=== PATIENT | female | born 1970 | race Caucasian/White ===

== ENCOUNTER → 2018-09-04 | Outpatient (CLI) | payer BC ==
--- NOTE | 2018-09-08 10:12 | MM ---
Reason for exam: screening (asymptomatic). Last mammogram was performed 6 years and 7 months ago. History: Retro-pectoral saline implants in both breasts, 2003. Physical Findings: A clinical breast exam by your physician is recommended on an annual basis and results should be correlated with mammographic findings. MG Screening Mammo Implant/CAD Bilateral CC, MLO, and ID view(s) were taken. Prior study comparison: January 24, 2012, CAD bilateral diagnostic mammogram. There are scattered fibroglandular densities. No suspicious abnormality. Bilateral retropectoral saline implants. No significant changes when compared with prior studies. ASSESSMENT: Negative, BI-RAD 1 RECOMMENDATION: Routine screening mammogram of both breasts in 1 year.
== END | disposition home or self-care (01) ==
LOC: RADMAMWWP 09:32
PROVIDERS: ATTEND Family Medicine
DX: Z12.31 Encounter for screening mammogram for malignant neoplasm of breast (principal); Z98.82 Breast implant status
CPT/HCPCS: 77067

== ENCOUNTER → 2018-10-21 | Outpatient (CLI) | payer BC ==
[2018-10-21 16:51] VITALS: BP 128/73; PULSE 90; RESP 16; TEMP 98.3; BMI 36.8
--- NOTE | 2018-10-21 17:05 | P.HPBAR ---
Bariatric H&P - History & Physicial H&P Date: 10/21/18 History & Physicial: Visit/CC: Initial Visit Patient initial contact: Initial weight: 100.244 kg Initial weight in pounds: 221.00 Height: 5 ft 5 in Initial BMI: 36.8 Last weight: Current weight: 100.244 kg Current weight in pounds: 221.00 Current BMI: 36.8 [place] body weight (based on NIH guidelines): 56.699 kg Excess body weight loss: 0.0% The patient is a 48 year-old F who presents for Bariatric Assessment. DATE OF SERVICE: 10/21/2018 REASON FOR CONSULTATION: Initial bariatric evaluation. HISTORY OF PRESENT ILLNESS: Sujatha Loya is a 48-year-old female who comes with lifelong morbid obesity. She is looking into the sleeve gastrectomy. She reports family history of troubles with their weight. No severe reflux disease although present. No family history of stomach or esophageal cancer. She still has her gallbladder and appendix. No food aversions. She denies know history of diabetes. She reports back, hip, ankle, and foot problems. She in the past has gotten down to 160 pounds while on Adipex. She is looking into surgical options for weight loss. She reports occasional right upper quadrant pain. At height of 5 feet 5 inches, her ideal body weight is 149 pounds. She comes in 221 pounds. Her body mass index is 36.8. She is 72 pounds overweight. PAST MEDICAL HISTORY: 1. Morbid obesity due to excess calories 2. Body mass index of 36.8 3. Seasonal allergies 4. Osteoarthritis of the back 5. Osteoarthritis of the knee 6. Osteoarthritis of the hips 7. Osteoarthritis of the ankle 8. Osteoarthritis of the foot PAST SURGICAL HISTORY: 1. Uterine Ablation HOME MEDICATIONS: Home Medications Medication Instructions Recorded Confirmed Cetirizine HCl 10 mg PO DIRECTED 09/29/18 10/21/18 Phentermine HCl [Adipex-P] 37.5 mg PO DAILY 09/29/18 10/21/18 ALLERGIES: Allergies Allergy/AdvReac Type Severity Reaction Status Date / Time codeine Allergy Rash/Hives Verified 09/29/18 13:19 SOCIAL HISTORY: No past tobacco use. FAMILY HISTORY: No family history of ulcerative colitis disease or Crohn's disease. Family history of morbid obesity. No lupus in the family. No reports of stomach or esophageal cancer. REVIEW OF ORGAN SYSTEMS: CONSTITUTIONAL: At height of 5 feet 5 inches, her ideal body weight is 149 pounds. She comes in 221 pounds. Her body mass index is 36.8. She is 72 pounds overweight. HEENT: Denies any active troubles with vision or hearing. ENDOCRINE: No diabetes. No hypothyroidism. CARDIOVASCULAR: No past reports of palpitations or heart attacks or chest pain. RESPIRATORY: No daytime somnolence. No asthma. GASTROINTESTINAL: Denies any bright red blood per rectum. No diarrhea. No constipation. MUSCULOSKELETAL: Has lower back pain and joint pain. Has osteoarthritis of the knees. NEURO: No headaches. No seizure disorders. PSYCH: No depression. No suicidal ideation. RHEUMATOLOGIC: No lupus. No rheumatoid arthritis. HEMATOLOGIC: Denies any abnormal bleeding or bruising. No personal history of DVTs. SKIN: No rash. No skin cancer. PHYSICAL EXAM: VITAL SIGNS: Height 5 foot 5 inches, weight 221 pounds. BMI 36.8 Vital Signs Temp 98.3 F 10/21/18 16:47 Pulse 90 10/21/18 16:47 Resp 16 10/21/18 16:47 BP 128/73 10/21/18 16:47 Pulse Ox GENERAL: Well-developed in no acute distress. HEENT: No scleral icterus. Extraocular movements grossly intact. Hears conversational speech. No nasal drainage. NECK: Supple without lymphadenopathy. CHEST: Nonlabored respirations with equal bilateral excursions. CARDIOVASCULAR: Regular rate and regular rhythm. Distal 2+ pulses. ABDOMEN: Obese, soft, nontender, nondistended. MUSCULOSKELETAL: No clubbing, cyanosis. Gross strength 5/5 distal lower extremities. NEURO: No focal or lateralizing signs. Cranial nerves 2 through 12 grossly within normal limits. PSYCH: Appropriate affect. Alert and oriented to person, place and time. SKIN: Good skin turgor. Well perfused. ASSESSMENT: 1. Morbid obesity due to excess calories 2. Body mass index of 36.8 3. Seasonal allergies 4. Osteoarthritis of the back 5. Osteoarthritis of the knee 6. Osteoarthritis of the hips 7. Osteoarthritis of the ankle 8. Osteoarthritis of the foot 9. Gallbladder disorder PLAN: 1. Surgical options including a band, gastric bypass, sleeve gastrectomy were described in detail. Alternatives such as gastric balloon including duodenal switch were described. She is looking into the sleeve gastrectomy. 2. The [place] [facility] collaborative data and outcomes calculator were described with surgical options. 3. Recommend a bariatric metabolic panel to evaluate for micro- including macronutrient deficiencies. 4. Recommend evaluation and treatment for sleep apnea. 5. Dietary surveillance and counseling was reviewed. Increased protein intake over 65 grams daily advised. 6. Will need cardiac risk assessment. 7. Recommend medical risk assessment. 8. Psych assessment per insurance guidelines. 9. Recommend upper endoscopy. 10. Recommend 12-lead EKG. 11. Recommend US gallbladder Thank you for this consultation. Past Medical History Past Medical History: No Reported History History of Any Multi-Drug Resistant Organisms: None Reported Past Surgical History: Uterine Ablation Additional Past Surgical History / Comment(s): breast enlargement surgery Past Anesthesia/Blood Transfusion Reactions: No Reported Reaction Smoking Status: Never smoker Surgical - Exam Vital Signs Temp Pulse Resp BP 98.3 F 90 16 128/73 10/21/18 16:47 10/21/18 16:47 10/21/18 16:47 10/21/18 16:47 Bariatric Checklist Checklist: Plan: Checklist: EGD: 1. Hiatal hernia: 2. H. Pylori: HgbA1c: Vitamin D: Smoking: Never smoker Primary care physician referral: DR. ZUNIGA Psychiatry clearance: Cardiology clearance: Sleep study: Diet journal: VTE risk score: VTE risk level: Rehab needs at discharge:
== END | disposition home or self-care (01) ==
LOC: BARWHC3 15:40
PROVIDERS: ATTEND Surgery Plastic and Reconstructive Surgery
DX: E66.01 Morbid (severe) obesity due to excess calories (principal); J30.2 Other seasonal allergic rhinitis; M47.819 Spondylosis without myelopathy or radiculopathy, site unspecified; M16.0 Bilateral primary osteoarthritis of hip; M17.9 Osteoarthritis of knee, unspecified; M19.079 Primary osteoarthritis, unspecified ankle and foot; K82.9 Disease of gallbladder, unspecified; Z68.36 Body mass index [BMI] 36.0-36.9, adult; Z98.890 Other specified postprocedural states; Z79.899 Other long term (current) drug therapy; Z88.5 Allergy status to narcotic agent
CPT/HCPCS: 99211

== ENCOUNTER → 2018-10-23 | Outpatient (CLI) | payer BC ==
[2018-10-23 12:09] LABS: HGB 13.9 gm/dL (11.4-16.0); MCH 29.1 pg (25.0-35.0); MCHC 33.1 g/dL (31.0-37.0); MCV 87.7 fL (80.0-100.0); Mean Platelet Volume 6.6; Platelet Count 320 k/uL (150-450); RBC 4.78 m/uL (3.80-5.40); RDW 12.9 % (11.5-15.5); WBC 6.7 k/uL (3.8-10.6)
[2018-10-23 12:22] LABS: INR 0.9 (<1.2); Partial Thromboplastin Time 25.2 sec (22.0-30.0); Prothrombin Time 9.7 sec (9.0-12.0)
[2018-10-23 18:53] LABS: Iron Saturation 30.62 (12.00-45.00)
[2018-10-23 18:55] LABS: African American GFR (CKD) 119.6 (60.0-200.0); Albumin 4.3 g/dL (3.80-4.90); Albumin/Globulin Ratio 2.05 (1.60-3.17); Anion Gap 7.9 mmol/L (4.00-12.00); BUN/Creat Ratio 11.43 Ratio (12.00-20.00); Carbon Dioxide 27.1 mmol/L (21.6-31.8); Chol/HDL Ratio 3.03; Globulin 2.1 g/dL (1.6-3.3); Magnesium 1.8 mg/dL (1.5-2.4); Non-African American GFR(CKD) 103.2 (60.0-200.0); Phosphorus 3.1 mg/dL (2.4-5.1); Potassium 4.3 mmol/L (3.5-5.5); Total Bilirubin 0.7 mg/dL (0.3-1.2); Total Protein 6.4 g/dL (6.2-8.2)
[2018-10-23 19:03] LABS: Ferritin 51.4 ng/mL (10.0-291.0); Folate, Serum 8.6 ng/mL; Vitamin D 25 Hydroxy 24.8 ng/mL (30.0-100.0)
[2018-10-23 23:55] LABS: Hemoglobin A1C 5.1 % (4.0-6.0)
[2018-10-26 13:22] LABS: Zinc, Serum 68 ug/dL (60-130)
[2018-10-27 08:22] LABS: Vitamin A 38 ug/dL (38-106)
[2018-10-27 18:50] LABS: Selenium 112 mcg/L (63-160)
[2018-11-10 08:36] LABS: Vit B1(Thiamine) 48 ug/L (38-122)
== END | disposition home or self-care (01) ==
LOC: LABWHC1 11:25
PROVIDERS: ATTEND Surgery Plastic and Reconstructive Surgery
DX: E66.01 Morbid (severe) obesity due to excess calories (principal); E21.1 Secondary hyperparathyroidism, not elsewhere classified; D50.9 Iron deficiency anemia, unspecified; E44.0 Moderate protein-calorie malnutrition; E55.9 Vitamin D deficiency, unspecified; K74.1 Hepatic sclerosis; N19 Unspecified kidney failure; K50.90 Crohn's disease, unspecified, without complications
CPT/HCPCS: 36415; 80053; 80061; 82306; 82525; 82607; 82728; 82746; 83036; 83540; 83550; 83735; 83970; 84100; 84134; 84255; 84425; 84443; 84590; 84630; 85027; 85610; 85730; 93005

== ENCOUNTER 2018-12-21 06:57 | Day surgery (SDC) | payer BC ==
[2018-12-17 12:47] VITALS: BMI 37.4
[~2018-12-21 06:57] MED LIST: LACTATED RINGERS 1,000 ML IV SCH; LIDOCAINE 1% 20 ML VIAL (10MG/ML) FOR IV START INTRADERMA PRN
--- NOTE | 2018-12-21 07:17 | P.GSHP ---
History of Present Illness H&P Date: 12/21/18 CHIEF COMPLAINT: GERD HISTORY OF PRESENT ILLNESS: The patient is a 48-year-old female who presents reports gastroesophageal reflux disease. Upper endoscopy was offered for further evaluation and management. PAST MEDICAL HISTORY: Please see list. PAST SURGICAL HISTORY: Please see list. MEDICATIONS: Please see list. ALLERGIES: Please see list. SOCIAL HISTORY: No illicit drug use FAMILY HISTORY: No reports of Crohn disease or ulcerative colitis. REVIEW OF ORGAN SYSTEMS: CONSTITUTIONAL: No reports of fevers or chills. GI: Denies any blood in stools or constipation. PHYSICAL EXAM: VITAL SIGNS: Stable GENERAL: Well-developed and pleasant in no acute distress. HEENT: No scleral icterus. Extraocular movements grossly intact. Moist buccal mucosa. NECK: Supple without lymphadenopathy. CHEST: Unlabored respirations. Equal bilateral excursions. CARDIOVASCULAR: Regular rate and rhythm. Distal 2+ pulses. ABDOMEN: Soft, nondistended. MUSCULOSKELETAL: No clubbing, cyanosis, or edema. ASSESSMENT: 1. Gastroesophageal reflux disease PLAN: 1. Recommend proceeding with an upper endoscopy Past Medical History Past Medical History: Skin Disorder Additional Past Medical History / Comment(s): SPORADIC HIVES FOR FEW MONTHS. History of Any Multi-Drug Resistant Organisms: None Reported Past Surgical History: Breast Surgery, Uterine Ablation Additional Past Surgical History / Comment(s): Breast enlargement surgery Past Anesthesia/Blood Transfusion Reactions: No Reported Reaction Smoking Status: Never smoker - Past Family History Mother Family Medical History: Cancer Additional Family Medical History / Comment(s): UTERINE CA Medications and Allergies Home Medications Medication Instructions Recorded Confirmed Type Cetirizine HCl 10 mg PO DAILY 09/29/18 12/17/18 History Phentermine HCl [Adipex-P] 37.5 mg PO DAILY 09/29/18 12/17/18 History Allergies Allergy/AdvReac Type Severity Reaction Status Date / Time codeine Allergy Rash/Hives Verified 12/17/18 12:34
[2018-12-21 07:32] VITALS: TEMP 97.9
[2018-12-21] MEDS ORDERED: LIDOCAINE 1% INJ 10MG/ML (20 ML MDV) ONE (07:56)
[2018-12-21] MEDS ORDERED: PROPOFOL 10 MG/ML 20 ML VIAL IV ONE (07:56)
[2018-12-21] MEDS ORDERED: GLYCOPYRROLATE 0.2 MG/ML 2 ML VIAL ONE (07:56)
[2018-12-21 08:32] VITALS: BP 111/71; PULSE 84; RESP 18
--- NOTE | 2018-12-21 12:32 | P.PCN ---
Date of Procedure: 12/21/18 Description of Procedure: PREOPERATIVE DIAGNOSIS: Gastroesophageal reflux disease. Morbid obesity. POSTOPERATIVE DIAGNOSIS: Morbid obesity. Gastritis. Gastroesophageal reflux disease. OPERATION: Esophagogastroduodenoscopy with biopsies along antrum. SURGEON: Citlali Cottrell MD ANESTHESIA: MAC. INDICATIONS: The patient is a 48-year-old female who presents with a history of reflux disease. Benefits and risks of the procedure were described. Informed consent was obtained. DESCRIPTION: The patient was brought into the endoscopy suite and laid in the left lateral decubitus position. An Olympus gastroscope was passed along the posterior oropharynx down to the distal esophagus where the squamocolumnar junction was encountered at 37 cm from the incisors with hypertensive lower esophageal sphincter. The stomach was entered and no bile reflux was found. Additional findings are listed below. Biopsies with cold forceps were obtained of the antrum. The first through third portion of the duodenum was examined and unremarkable. Retroflexion of the scope confirmed Hill grade 1 lower esophageal valve. The squamocolumnar junction demonstrated no LA grade A erosive esophagitis. The stomach was desufflated. The patient tolerated the procedure well. FINDINGS: Squamocolumnar junction 37 cm from the incisors. Diaphragmatic hiatus at 37 cm. Hill grade 1 lower esophageal valve. No LA grade A erosive esophagitis. No active duodenitis. Chronic gastritis Hypertensive lower esophageal sphincter RECOMMENDATIONS: Upper endoscopy as needed. May need esophagram or manometry to evaluate hypertensive lower esophageal sphincter Plan - Discharge Summary Discharge Rx Participant: No New Discharge Prescriptions: No Action Phentermine HCl [Adipex-P] 37.5 mg PO DAILY Cetirizine HCl 10 mg PO DAILY Discharge Medication List Cetirizine HCl 10 mg PO DAILY 09/29/18 [History] Phentermine HCl [Adipex-P] 37.5 mg PO DAILY 09/29/18 [History] Follow up [facility]ment(s[facility]Ref[place] [facility] [place] [place] [facility] - 12/30/18 4:20 pm Patient Instructions/Handouts: *Surgery [facility] - (Anesthesia) Endoscopy Discharge Instructions, Gastritis (DC) Activity/Diet/Wound Care/Special Instructions: dr will have biopsy results 5-7 days Discharge Disposition: HOME SELF-CARE
== END 2018-12-21 08:33 | disposition home or self-care (01) ==
LOC: ORWHC2ENDO 06:57
PROVIDERS: ATTEND Surgery Plastic and Reconstructive Surgery
DX: K21.0 Gastro-esophageal reflux disease with esophagitis (principal); K29.50 Unspecified chronic gastritis without bleeding; E66.01 Morbid (severe) obesity due to excess calories; Z68.37 Body mass index [BMI] 37.0-37.9, adult; Z80.49 Family history of malignant neoplasm of other genital organs; Z88.5 Allergy status to narcotic agent; Z79.899 Other long term (current) drug therapy
CPT/HCPCS: 81025; 88305; 43239; J2001; J2704

== ENCOUNTER → 2018-12-30 | Outpatient (CLI) | payer BC ==
[2018-12-30 16:44] VITALS: BP 138/64; PULSE 91; TEMP 99; BMI 37.9
--- NOTE | 2018-12-30 17:12 | P.PN ---
Subjective Progress Note Date: 12/30/18 DATE OF SERVICE: 12/30/2018 CHIEF COMPLAINT: Morbid obesity HISTORY OF PRESENT ILLNESS: Sujatha Loya is a 48-year-old female who comes with lifelong morbid obesity. She is looking into the sleeve gastrectomy. As a result of her obesity, she has developed osteoarthritis of the back, hips, ankles, and foot problems including hypertension. She also comes in with gastroesophageal reflux disease. She has occasional dysphagia and right upper quadrant abdominal pain. She is undergoing medical supervised weight loss. At height of 5 feet 5 inches, her ideal body weight is 149 pounds. She comes in 228 pounds from 221 pounds, 2 months ago. She has gained 7 pounds in 2 months. Her body mass index is 36.8 up to 37.9. She is 79 pounds overweight. PAST MEDICAL HISTORY: 1. Morbid obesity due to excess calories 2. Body mass index of 37.9 3. Seasonal allergies 4. Osteoarthritis of the back 5. Osteoarthritis of the knee 6. Osteoarthritis of the hips 7. Osteoarthritis of the ankle 8. Osteoarthritis of the foot PAST SURGICAL HISTORY: 1. Uterine Ablation HOME MEDICATIONS: Home Medications Medication Instructions Recorded Confirmed Cetirizine HCl 10 mg PO DIRECTED 09/29/18 10/21/18 Phentermine HCl [Adipex-P] 37.5 mg PO DAILY 09/29/18 10/21/18 ALLERGIES: Allergies Allergy/AdvReac Type Severity Reaction Status Date / Time codeine Allergy Rash/Hives Verified 09/29/18 13:19 SOCIAL HISTORY: No past tobacco use. FAMILY HISTORY: No family history of ulcerative colitis disease or Crohn's disease. Family history of morbid obesity. No lupus in the family. No reports of stomach or esophageal cancer. REVIEW OF ORGAN SYSTEMS: CONSTITUTIONAL: At height of 5 feet 5 inches, her ideal body weight is 149 pounds. She comes in 228 pounds. Her body mass index is 37.9. She is 79 pounds overweight. HEENT: Denies any active troubles with vision or hearing. ENDOCRINE: No diabetes. No hypothyroidism. CARDIOVASCULAR: No past reports of palpitations or heart attacks or chest pain. RESPIRATORY: No daytime somnolence. No asthma. GASTROINTESTINAL: Denies any bright red blood per rectum. No diarrhea. No constipation. MUSCULOSKELETAL: Has lower back pain and joint pain. Has osteoarthritis of the knees. NEURO: No headaches. No seizure disorders. PSYCH: No depression. No suicidal ideation. RHEUMATOLOGIC: No lupus. No rheumatoid arthritis. HEMATOLOGIC: Denies any abnormal bleeding or bruising. No personal history of DVTs. SKIN: No rash. No skin cancer. PHYSICAL EXAM: VITAL SIGNS: Height 5 foot 5 inches, weight 228 pounds. BMI 37.9 Vital Signs Temp 99.0 F 12/30/18 16:33 Pulse 91 12/30/18 16:33 Resp BP 138/64 12/30/18 16:33 Pulse Ox GENERAL: Well-developed in no acute distress. HEENT: No scleral icterus. Extraocular movements grossly intact. Hears conversational speech. No nasal drainage. NECK: Supple without lymphadenopathy. CHEST: Nonlabored respirations with equal bilateral excursions. CARDIOVASCULAR: Regular rate and regular rhythm. Distal 2+ pulses. ABDOMEN: Obese, soft, nontender, nondistended. MUSCULOSKELETAL: No clubbing, cyanosis. Gross strength 5/5 distal lower extremities. NEURO: No focal or lateralizing signs. Cranial nerves 2 through 12 grossly within normal limits. PSYCH: Appropriate affect. Alert and oriented to person, place and time. SKIN: Good skin turgor. Well perfused. LABS: Cholesterol is elevated 203, Vitamin D is low EKG: Reviewed and is borderline EGD FINDINGS: Squamocolumnar junction 37 cm from the incisors. Diaphragmatic hiatus at 37 cm. Hill grade 1 lower esophageal valve. No LA grade A erosive esophagitis. No active duodenitis. Chronic gastritis Hypertensive lower esophageal sphincter Final Pathologic Diagnosis GASTRIC ANTRUM, BIOPSY: Chronic gastritis. Helicobacter organisms are not identified on routine H+E stained sections. ASSESSMENT: 1. Morbid obesity due to excess calories 2. Body mass index of 37.9 3. Seasonal allergies 4. Osteoarthritis of the back 5. Osteoarthritis of the knee 6. Osteoarthritis of the hips 7. Osteoarthritis of the ankle 8. Osteoarthritis of the foot 9. Gallbladder disorder 10. Hypertensive heart disease 11. Hypertensive lower esophageal sphincter 12. Chronic gastritis 13. Hypercholesterolemia PLAN: 1. Recommend esophageal manometry for hypertensive lower esophageal sphincter. 2. She has risk for dysphagia with sleeve gastrectomy with current hypertensive esophageal sphincter. 3. Recommend ultrasound of the abdomen for history of right upper quadrant abdominal pain. Objective - Vital Signs Vital signs: Vital Signs Temp 99.0 F 12/30/18 16:33 Pulse 91 10/16/19 16:33 Resp BP 138/64 12/30/18 16:33 Pulse Ox Intake & Output 12/29/18 12/30/18 12/30/18 18:59 06:59 18:59 Weight 103.419 kg
== END | disposition home or self-care (01) ==
LOC: BARWHC3 15:51
PROVIDERS: ATTEND Surgery Plastic and Reconstructive Surgery
DX: E66.01 Morbid (severe) obesity due to excess calories (principal); M16.10 Unilateral primary osteoarthritis, unspecified hip; M19.079 Primary osteoarthritis, unspecified ankle and foot; M17.10 Unilateral primary osteoarthritis, unspecified knee; K82.8 Other specified diseases of gallbladder; I11.9 Hypertensive heart disease without heart failure; I50.9 Heart failure, unspecified; J30.2 Other seasonal allergic rhinitis; E78.00 Pure hypercholesterolemia, unspecified; K29.50 Unspecified chronic gastritis without bleeding; K21.9 Gastro-esophageal reflux disease without esophagitis; M47.819 Spondylosis without myelopathy or radiculopathy, site unspecified; Z68.37 Body mass index [BMI] 37.0-37.9, adult; Z98.890 Other specified postprocedural states; Z79.899 Other long term (current) drug therapy; Z88.5 Allergy status to narcotic agent
CPT/HCPCS: 99211

== ENCOUNTER → 2019-01-08 | Outpatient (CLI) | payer BC ==
--- NOTE | 2019-01-08 11:44 | US ---
EXAMINATION TYPE: US gallbladder DATE OF EXAM: 01/08/2019 COMPARISON: NONE CLINICAL HISTORY: R10.11 right upper quadrant pain. Intermittent RUQ pain EXAM MEASUREMENTS: Liver Length: 15.7 cm Gallbladder Wall: 0.3 cm CBD: 0.3 cm Right Kidney: 10.3 x 4.4 x 5.5 cm Pancreas: Obscured by bowel gas Liver: multiple cystic areas noted, largest = 4.4 x 4.1 x 5.2cm Gallbladder: multiple stones Evidence for sonographic Darden's sign: no CBD: appears wnl Right Kidney: no evidence of hydronephrosis or mass Pancreas is obscured by overlying bowel gas on images saved. Visualized liver shows no intrahepatic d uctal dilatation. Technologist identifies few simple appearing thin-walled cysts largest measuring up to 5.2 cm long axis. Gallbladder poorly visualized with suspected shadowing mobile gallstones fillin g the lumen. No surrounding fluid or abnormal wall thickening. Common bile duct is within normal limi ts. Images of right kidney show no gross hydronephrosis. IMPRESSION: Gallstones without convincing secondary ultrasound evidence for acute cholecystitis. Cons ider HIDA scan if patient's symptoms persist.
== END | disposition home or self-care (01) ==
LOC: RADUSWWP 10:55
PROVIDERS: ATTEND Surgery Plastic and Reconstructive Surgery
DX: K80.20 Calculus of gallbladder without cholecystitis without obstruction (principal)
CPT/HCPCS: 76705

== ENCOUNTER → 2019-01-11 | Outpatient (CLI) | payer BC ==
[2019-01-11 13:37] VITALS: BMI 38.2
== END ==
LOC: BARWHC3 08:42
PROVIDERS: ATTEND Surgery Plastic and Reconstructive Surgery
DX: E66.01 Morbid (severe) obesity due to excess calories (principal); Z68.38 Body mass index [BMI] 38.0-38.9, adult
CPT/HCPCS: 97804

== ENCOUNTER → 2019-01-27 | Outpatient (CLI) | payer BC ==
[2019-01-27 16:43] VITALS: BP 123/76; PULSE 85; RESP 16; TEMP 98.2; BMI 38.1
--- NOTE | 2019-01-27 17:23 | P.PN ---
Subjective Progress Note Date: 01/27/19 DATE OF SERVICE: 01/27/2019 CHIEF COMPLAINT: Morbid obesity HISTORY OF PRESENT ILLNESS: Sujatha Loya is a 48-year-old female who comes with lifelong morbid obesity. As a result of her obesity, she has osteoarthritis of the back, hips, ankles, including hypertension. She is undergoing medical supervised weight loss and has been on Adipex. She comes in with gastroesophageal reflux disease including right upper quadrant pain including dysphagia. She is looking into the sleeve gastrectomy. At height of 5 feet 5 inches, her ideal body weight is 149 pounds. She comes in 229 pounds from 228 pounds, 1 month ago. She has gained 1 pound in 1 month. Her body mass index is 36.8 up to 38.1. She is 80 pounds overweight. PAST MEDICAL HISTORY: 1. Morbid obesity due to excess calories 2. Body mass index of 38.1 3. Seasonal allergies 4. Osteoarthritis of the back 5. Osteoarthritis of the knee 6. Osteoarthritis of the hips 7. Osteoarthritis of the ankle 8. Osteoarthritis of the foot PAST SURGICAL HISTORY: 1. Uterine Ablation 2. EGD HOME MEDICATIONS: Home Medications Medication Instructions Recorded Confirmed Cetirizine HCl 10 mg PO DIRECTED 09/29/18 10/21/18 Phentermine HCl [Adipex-P] 37.5 mg PO DAILY 09/29/18 10/21/18 ALLERGIES: Allergies Allergy/AdvReac Type Severity Reaction Status Date / Time codeine Allergy Rash/Hives Verified 09/29/18 13:19 SOCIAL HISTORY: No past tobacco use. FAMILY HISTORY: No family history of ulcerative colitis disease or Crohn's disease. Family history of morbid obesity. No lupus in the family. No reports of stomach or esophageal cancer. REVIEW OF ORGAN SYSTEMS: CONSTITUTIONAL: At height of 5 feet 5 inches, her ideal body weight is 149 pounds. She comes in 228 pounds. Her body mass index is 37.9. She is 79 pounds overweight. HEENT: Denies any active troubles with vision or hearing. ENDOCRINE: No diabetes. No hypothyroidism. CARDIOVASCULAR: No past reports of palpitations or heart attacks or chest pain. RESPIRATORY: No daytime somnolence. No asthma. GASTROINTESTINAL: Denies any bright red blood per rectum. No diarrhea. No constipation. MUSCULOSKELETAL: Has lower back pain and joint pain. Has osteoarthritis of the knees. NEURO: No headaches. No seizure disorders. PSYCH: No depression. No suicidal ideation. RHEUMATOLOGIC: No lupus. No rheumatoid arthritis. HEMATOLOGIC: Denies any abnormal bleeding or bruising. No personal history of DVTs. SKIN: No rash. No skin cancer. PHYSICAL EXAM: VITAL SIGNS: Height 5 foot 5 inches, weight 229 pounds. BMI 38.1 Vital Signs Temp 98.2 F 01/27/19 16:40 Pulse 85 01/27/19 16:40 Resp 16 01/27/19 16:40 BP 123/76 01/27/19 16:40 Pulse Ox GENERAL: Well-developed in no acute distress. HEENT: No scleral icterus. Extraocular movements grossly intact. Hears conversational speech. No nasal drainage. NECK: Supple without lymphadenopathy. CHEST: Nonlabored respirations with equal bilateral excursions. CARDIOVASCULAR: Regular rate and regular rhythm. Distal 2+ pulses. ABDOMEN: Obese, soft, nontender, nondistended. MUSCULOSKELETAL: No clubbing, cyanosis. Gross strength 5/5 distal lower extremities. NEURO: No focal or lateralizing signs. Cranial nerves 2 through 12 grossly within normal limits. PSYCH: Appropriate affect. Alert and oriented to person, place and time. SKIN: Good skin turgor. Well perfused. STUDIES: Esophageal manometry reviewed showing no evidence of esophageal dysmotility. US gallbladder independently reviewed shows multiple gallstones. ASSESSMENT: 1. Morbid obesity due to excess calories 2. Body mass index of 37.9 3. Seasonal allergies 4. Osteoarthritis of the back 5. Osteoarthritis of the knee 6. Osteoarthritis of the hips 7. Osteoarthritis of the ankle 8. Osteoarthritis of the foot 9. Gallbladder disorder 10. Hypertensive heart disease 11. Hypertensive lower esophageal sphincter 12. Chronic gastritis 13. Hypercholesterolemia 14. Gallstones 15. Borderline EKG PLAN: 1. With her history of right upper quadrant pain and gastroesophageal reflux disease, her symptoms are exacerbated with gallstones. 2. Recommend cholecystectomy for symptomatic gallstones. 3. She has borderline EKG and has completed her cardiac clearance. 4. Will need correction of Vitamin D with 50,000 units weekly. 5. Bariatric options between a sleeve, band and a Hi-en-Y gastric bypass were reviewed in detail. The patient elected for a sleeve gastrectomy. Robotic assisted approach described. She is elevated risks with occasional dysphagia 6. The [place] [facility] Data was also reviewed with benefits and risks as described. 7. A 2 week high-protein low caloric 800 kcal diet described to address hepatomegaly. 8. Preoperative labs including complete metabolic panel and CBC with type and screen recommended. 9. DVT prophylaxis per [place] [facility]. 10. Antibiotic prophylaxis. 11. Inpatient hospitalization anticipated for more than 2 nights. 12. All questions and concerns were addressed with the patient. Objective - Vital Signs Vital signs: Vital Signs Temp 98.2 F 01/27/19 16:40 Pulse 85 01/27/19 16:40 Resp 16 01/27/19 16:40 BP 123/76 01/27/19 16:40 Pulse Ox Intake & Output 01/26/19 01/27/19 01/27/19 18:59 06:59 18:59 Weight 103.873 kg
== END | disposition home or self-care (01) ==
LOC: BARWHC3 16:08
PROVIDERS: ATTEND Surgery Plastic and Reconstructive Surgery
DX: E66.01 Morbid (severe) obesity due to excess calories (principal); J30.2 Other seasonal allergic rhinitis; M16.0 Bilateral primary osteoarthritis of hip; M17.0 Bilateral primary osteoarthritis of knee; M19.079 Primary osteoarthritis, unspecified ankle and foot; M47.819 Spondylosis without myelopathy or radiculopathy, site unspecified; I11.9 Hypertensive heart disease without heart failure; K22.0 Achalasia of cardia; K29.50 Unspecified chronic gastritis without bleeding; E78.00 Pure hypercholesterolemia, unspecified; K80.20 Calculus of gallbladder without cholecystitis without obstruction; K82.9 Disease of gallbladder, unspecified; T78.49XA Other allergy, initial encounter; Z88.5 Allergy status to narcotic agent; Z68.38 Body mass index [BMI] 38.0-38.9, adult; Z79.899 Other long term (current) drug therapy
CPT/HCPCS: 99211

== ENCOUNTER → 2019-02-23 | Outpatient (CLI) | payer BC ==
[2019-02-23 12:09] LABS: ALT 22 U/L (9-52); AST 18 U/L (14-36); African American GFR (CKD) >90 (>60 ml/min/1.73 sqM); Albumin 4.3 g/dL (3.5-5.0); Alkaline Phosphatase 45 U/L (38-126); Anion Gap 7 mmol/L; Blood Urea Nitrogen 12 mg/dL (7-17); Calcium 9.6 mg/dL (8.4-10.2); Carbon Dioxide 28 mmol/L (22-30); Chloride 105 mmol/L (98-107); Glucose 97 mg/dL (74-99); Non-African American GFR(CKD) >90 (>60 ml/min/1.73 sqM); Potassium 4.2 mmol/L (3.5-5.1); Sodium 140 mmol/L (137-145); Total Bilirubin 0.9 mg/dL (0.2-1.3); Total Protein 7.2 g/dL (6.3-8.2)
[2019-02-23 12:11] LABS: Basophils % (A) 1 %; Eosinophils # (A) 0.2 k/uL (0-0.7); Eosinophils % (A) 2 %; HCT 41.6 % (34.0-46.0); Lymphocytes # (A) 2.2 k/uL (1.0-4.8); Lymphocytes % (A) 32 %; MCH 29.4 pg (25.0-35.0); MCHC 33.6 g/dL (31.0-37.0); MCV 87.5 fL (80.0-100.0); Monocytes # (A) 0.4 k/uL (0-1.0); Monocytes % (A) 6 %; Neutrophils % (A) 57 %; Platelet Count 320 k/uL (150-450); RBC 4.75 m/uL (3.80-5.40); RDW 12.5 % (11.5-15.5); WBC 6.9 k/uL (3.8-10.6)
== END ==
LOC: LABPAT 11:20
PROVIDERS: ATTEND Surgery Plastic and Reconstructive Surgery
DX: Z01.812 Encounter for preprocedural laboratory examination (principal)
CPT/HCPCS: 36415; 80053; 85025

== ENCOUNTER 2019-03-01 08:14 | Inpatient (IN) | payer BC ==
--- NOTE | 2019-03-01 07:29 | P.GSHP ---
History of Present Illness H&P Date: 03/01/19 DATE OF SERVICE: 03/01/2019 CHIEF COMPLAINT: Morbid obesity HISTORY OF PRESENT ILLNESS: Sujatha Loya is a 48-year-old female who comes with lifelong morbid obesity. She is looking into the sleeve gastrectomy. As a result of her obesity, she has developed osteoarthritis of the back, hips, ank les, and foot problems including hypertension. She also comes in with gastroesophageal reflux disease. She has occasional dysphagia and right upper quadrant abdominal pain. She is undergoing medical supervised weight loss. She also presents with ultrasound consistent with symptomatic gallstones. At height of 5 feet 5 inches, her ideal body weight is 149 pounds. She comes in 228 pounds .Her body mass index is 37.9. She is 79 pounds overweight. PAST MEDICAL HISTORY: 1. Morbid obesity due to excess calories 2. Body mass index of 37.9 3. Seasonal allergies 4. Osteoarthritis of the back 5. Osteoarthritis of the knee 6. Osteoarthritis of the hips 7. Osteoarthritis of the ankle 8. Osteoarthritis of the foot PAST SURGICAL HISTORY: 1. Uterine Ablation HOME MEDICATIONS: Home Medications Medication Instructions Recorded Confirmed Cetirizine HCl 10 mg PO DIRECTED 09/29/18 10/21/18 Phentermine HCl [Adipex-P] 37.5 mg PO DAILY 09/29/18 10/21/18 ALLERGIES: Allergies Allergy/AdvReac Type Severity Reaction Status Date / Time codeine Allergy Rash/Hives Verified 09/29/18 13:19 SOCIAL HISTORY: No past tobacco use. FAMILY HISTORY: No family history of ulcerative colitis disease or Crohn's disease. Family history of morbid obesity. No lupus in the family. No reports of stomach or esophageal cancer. REVIEW OF ORGAN SYSTEMS: CONSTITUTIONAL: At height of 5 feet 5 inches, her ideal body weight is 149 pounds. She comes in 228 pounds. Her body mass index is 37.9. She is 79 pounds overweight. HEENT: Denies any active troubles with vision or hearing. ENDOCRINE: No diabetes. No hypothyroidism. CARDIOVASCULAR: No past reports of palpitations or heart attacks or chest pain. RESPIRATORY: No daytime somnolence. No asthma. GASTROINTESTINAL: Denies any bright red blood per rectum. No diarrhea. No constipation. MUSCULOSKELETAL: Has lower back pain and joint pain. Has osteoarthritis of the knees. NEURO: No headaches. No seizure disorders. PSYCH: No depression. No suicidal ideation. RHEUMATOLOGIC: No lupus. No rheumatoid arthritis. HEMATOLOGIC: Denies any abnormal bleeding or bruising. No personal history of DVTs. SKIN: No rash. No skin cancer. PHYSICAL EXAM: VITAL SIGNS: Height 5 foot 5 inches, weight 228 pounds. BMI 37.9 GENERAL: Well-developed in no acute distress. HEENT: No scleral icterus. Extraocular movements grossly intact. Hears conversational speech. No nasal drainage. NECK: Supple without lymphadenopathy. CHEST: Nonlabored respirations with equal bilateral excursions. CARDIOVASCULAR: Regular rate and regular rhythm. Distal 2+ pulses. ABDOMEN: Obese, soft, nontender, nondistended. MUSCULOSKELETAL: No clubbing, cyanosis. Gross strength 5/5 distal lower extremities. NEURO: No focal or lateralizing signs. Cranial nerves 2 through 12 grossly within normal limits. PSYCH: Appropriate affect. Alert and oriented to person, place and time. SKIN: Good skin turgor. Well perfused. ASSESSMENT: 1. Morbid obesity due to excess calories 2. Body mass index of 37.9 3. Seasonal allergies 4. Osteoarthritis of the back 5. Osteoarthritis of the knee 6. Osteoarthritis of the hips 7. Osteoarthritis of the ankle 8. Osteoarthritis of the foot 9. Gallbladder disorder 10. Hypertensive heart disease 11. Hypertensive lower esophageal sphincter 12. Chronic gastritis 13. Hypercholesterolemia 14. Gallstones PLAN: 1. Bariatric options between a sleeve, band and a Hi-en-Y gastric bypass were reviewed in detail. The patient elected for a sleeve gastrectomy. Robotic assisted approach described. 2. The [place] [facility] Data was also reviewed with benefits and risks as described. 3. An 8 page second-generation bariatric consent form was reviewed in detail including potential of bleeding, infection, leaks, adequate weight loss, nutritional deficiencies which the patient demonstrated understanding of the risks. 4. A 2 week high-protein low caloric 800 kcal diet described to address hepatomegaly. 5. Preoperative labs including complete metabolic panel and CBC with type and screen recommended. 6. DVT prophylaxis per [place] [facility]. 7. Antibiotic prophylaxis. 8. Inpatient hospitalization anticipated for more than 2 nights. 9. All questions and concerns were addressed with the patient. 10. Robotic cholecystectomy for symptomatic gallstones. Past Medical History Past Medical History: No Reported History Additional Past Medical History / Comment(s): HAD HIVES ON AND OFF FOR 2 MONTHS NOV 2018 History of Any Multi-Drug Resistant Organisms: None Reported Past Surgical History: Breast Surgery, Uterine Ablation Additional Past Surgical History / Comment(s): BILATERAL Breast enlargement surgery Past Anesthesia/Blood Transfusion Reactions: No Reported Reaction Smoking Status: Never smoker - Past Family History Mother Family Medical History: Cancer Additional Family Medical History / Comment(s): UTERINE CA Medications and Allergies Home Medications Medication Instructions Recorded Confirmed Type Cetirizine HCl 10 mg PO DAILY 09/29/18 02/26/19 History Ergocalciferol [Vitamin D2 50,000 unit PO VELARDE 02/26/19 02/26/19 History (DRISDOL)] Allergies Allergy/AdvReac Type Severity Reaction Status Date / Time codeine Allergy Rash/Hives Verified 02/26/19 11:48
[~2019-03-01 08:14] MED LIST changes: +ACETAMINOPHEN TAB 500 MG TAB PO STA; +CHLORHEXIDINE GLUCONATE 15 ML CUP MUCOUS MEM ONE; +DEXAMETHASONE SOD PHOSPHATE 10 MG/ML 1 ML VIAL IV ONE; +ENOXAPARIN 40 MG/0.4 ML SYRINGE SQ ONE; +GABAPENTIN 300 MG CAP PO STA; -LACTATED RINGERS 1,000 ML IV SCH; +ONDANSETRON 4 MG/2 ML VIAL IVP ONE; +PANTOPRAZOLE 40 MG/10 ML VIAL IV ONE; +SCOPOLAMINE 1.5MG/72HR PATCH TRANSDERM ONE; +SCOPOLAMINE 1.5MG/72HR PATCH TRANSDERM STA; +fentaNYL (PF) 50 MCG/ML 2 ML AMP IV PRN
[2019-03-01] MEDS: LACTATED RINGERS 1,000 ML IV SCH (09:27)
[2019-03-01] MEDS ORDERED: MIDAZOLAM 2 MG/2 ML VIAL IVP ONE (09:42)
[2019-03-01] MEDS ORDERED: INDOCYANINE GREEN 25 MG VIAL IV STA (09:47)
[2019-03-01] MEDS ORDERED: ROPIVACAINE 5 MG/ML 30 ML VIAL ONE (09:50)
[2019-03-01] MEDS ORDERED: ROCURONIUM BROMIDE 10 MG/ML 10 ML VIAL IV ONE (09:50)
[2019-03-01] MEDS ORDERED: INDOCYANINE GREEN 25 MG VIAL IV ONE (09:50)
[2019-03-01] MEDS ORDERED: KETAMINE 10 MG/ML 20 ML VIAL ONE (09:50)
[2019-03-01] MEDS ORDERED: LIDOCAINE 1% INJ 10MG/ML (20 ML MDV) ONE (09:50)
[2019-03-01] MEDS ORDERED: MIDAZOLAM 2 MG/2 ML VIAL ONE (09:50)
[2019-03-01] MEDS ORDERED: DEXAMETHASONE SOD PHOSPHATE 4 MG/ML 1 ML VIAL ONE (09:50)
[2019-03-01] MEDS ORDERED: SUCCINYLCHOLINE CHLORIDE 100 MG/5 ML SYR IV ONE (09:50)
[2019-03-01] MEDS ORDERED: NEOSTIGMINE 1 MG/ML 10 ML VIAL ONE (09:50)
[2019-03-01] MEDS ORDERED: PROPOFOL 10 MG/ML 20 ML VIAL IV ONE (09:50)
[2019-03-01] MEDS ORDERED: fentaNYL (PF) 50 MCG/ML 2 ML AMP ONE (09:50)
[2019-03-01] MEDS ORDERED: GLYCOPYRROLATE 0.2 MG/ML 2 ML VIAL ONE (09:50)
[2019-03-01] MEDS ORDERED: BUPIVACAIN-EPI 0.25%-1:200,000 30 ML VIAL SQ ONE ×2 (10:27→10:32)
--- NOTE | 2019-03-01 10:39 | P.ANPRN ---
Procedure Note - Anesthesia - Nerve Block Performed Bilateral Transversus Abdominis Single Time Out Performed: Yes Date of Procedure: 03/01/19 Procedure Start Time: 09:42 Procedure Stop Time: 09:48 Location of Patient: PreOp Indication: Acute Post-Operative Pain, Requested by Surgeon Sedation Type: Sedate with meaningful contact maintained Preparation: Sterile Prep Position: Supine Needle Types: Pajunk Needle Gauge: 21 Ultrasound used to visualize needle placement: Yes Ultrasound used to observe medication spread: Yes Blood Aspirated: No Pain Paresthesia on Injection Noted: No Resistance on Injection: Normal Image Stored and Saved: Yes Events: Uneventful and Well Tolerated (ropi .5% 15cc plus dexamethasone 4mg each side)
[2019-03-01] MEDS ORDERED: LACTATED RINGERS 1,000 ML IV ONE (11:58)
[2019-03-01] MEDS ORDERED: NALOXONE 0.4 MG/ML 1 ML VIAL IV PRN ×2 (12:25→12:29)
[2019-03-01] MEDS ORDERED: diphenhydrAMINE 50 MG/ML 1 ML VIAL IVP PRN (12:25)
--- NOTE | 2019-03-01 12:35 | P.OP ---
Date of Procedure: 03/01/19 Description of Procedure: SURGEON: NAT BUCK MD PREOPERATIVE DIAGNOSES: 1. Morbid obesity due to excess calories 2. Body mass index of 37.9 3. Seasonal allergies 4. Osteoarthritis of the back 5. Osteoarthritis of the knee 6. Osteoarthritis of the hips 7. Osteoarthritis of the ankle 8. Osteoarthritis of the foot 9. Gallbladder disorder 10. Hypertensive heart disease 11. Hypertensive lower esophageal sphincter 12. Chronic gastritis 13. Hypercholesterolemia 14. Gallstones POSTOPERATIVE DIAGNOSES: 1. Morbid obesity due to excess calories 2. Body mass index of 37.9 3. Seasonal allergies 4. Osteoarthritis of the back 5. Osteoarthritis of the knee 6. Osteoarthritis of the hips 7. Osteoarthritis of the ankle 8. Osteoarthritis of the foot 9. Gallbladder disorder 10. Hypertensive heart disease 11. Hypertensive lower esophageal sphincter 12. Chronic gastritis 13. Hypercholesterolemia 14. Gallstones OPERATION: 1. Robotic assisted daVinci Xi laparoscopic sleeve gastrectomy with 40-[place] Citizen bougie, multiport. 2. Robotic assisted daVinci Xi laparoscopic cholecystectomy with FIREFLY, multiport. 3. Intraoperative esophagogastroduodenoscopy. ANESTHESIA: Gen. local anesthetic ESTIMATED BLOOD LOSS: 20 mL SPECIMENS REMOVED: Sleeve gastrectomy and gallbladder COMPLICATIONS: None. INDICATIONS: Carrie Call is a 48-year-old female who comes with lifelong morbid obesity. She is looking into the sleeve gastrectomy. As a result of her obesity, she has developed osteoarthritis of the back, hips, ankles, and foot problems including hypertension. She also comes in with gastroesophageal reflux disease. She has occasional dysphagia and right upper quadrant abdominal pain. She is undergoing medical supervised weight loss. She also presents with ultrasound consistent with symptomatic gallstones. At height of 5 feet 5 inches, her ideal body weight is 149 pounds. She comes in 225 pounds. Her body mass index is 37.4. She is 75 pounds overweight. She now comes in evaluating for the sleeve gastrectomy. All surgical options for morbid obesity had been described using the [place] [facility] comorbidity resolution including complication risk score. A second-generation bariatric consent form was described in detail including the possibility of protein malnutrition, leaks, gastric stricture, venous thrombosis, gastroesophageal reflux disease, need for further surgery for which she demonstrated understanding. Additionally she had clinical cholecystitis for which cholecystectomy was described. Benefits and risks of the procedure were described at length. Informed consent was obtained. DESCRIPTION: The patient was brought into the operating room theater. Preoperatively she had received Lovenox subcutaneously for DVT prophylaxis. Additionally she had Peridex oral solution as an oral decontaminant. After general induction, the abdomen was prepped and draped in standard sterile fashion. An Ioban draping was placed along the abdomen. No gilmore catheter was placed A robotic da Stephanie Xi system was prepped and primed. At 15 cm from the xiphoid, proposed port sites were marked with indelible marker along the anterior axillary line bilaterally, mid axillary line bilaterally with each ports were marked 10 to 15 cm from each other. The railways assistant port was marked along the left lateral abdominal wall. The robotic stapler port was marked for the right midclavicular line. A 5 mm 0 degrees laparoscopic trocar entry was performed along the left upper quadrant. The abdomen was insufflated to 15 mmHg pressure was tolerated well. Diagnostic laparoscopy demonstrated no injury to bowel, viscera, or mesentery. The liver surface was unremarkable. No injury had occurred to the small bowel or viscera. Along the hiatus no evidence of prominent hiatal hernia. A 12 mm port was placed along the left upper abdominal wall after exchanging the 5 mm port. Another port was placed along the left lateral abdominal wall 8 mm. A separate 8 mm port was placed along the epigastrium and a 12-mm port placed along the right upper quadrant. Please note that the ports were placed at least 20 cm away from the target anatomy. Another port was placed along the right lateral abdominal wall, 8 mm trocar. Care was taken to check each robotic arms were safely away from collision with the bed or the patient. I had sat at the console. At the epigastrium, a median sized Alvaro liver retractor was placed under direct visualization with the [place] Finisher placed under the right shoulder of the patient. Next, 12-mm robot stapler port was placed along the right upper quadrant. The camera 8-mm port was maintained along the epigastrium. The patient was repositioned in reverse Trendelenburg position at 20-degrees after lowering the bed. The robot was docked along the right side of the patient. Using a grasper for arm 2, a hook cautery for arm 3, including grasper for arm 1, the robotic system was docked and primed as described. Instruments including Bovie cautery, vessel sealer, and staplers, and clips were interchanged by the railways assistant for stapler loads. The camera was placed at 30-degrees down. Attention was brought to the sleeve gastrectomy portion of the case. The pylorus was identified and 6 cm proximally along the greater curvature of the stomach, the short gastrics were mobilized upwards to the angle of His using a vessel sealer. Redundant and adherent gastric cardia was addressed similarly and carefully with vessel sealer. Hemostasis was excellent during this portion of the procedure. The nursing fraud analyst placed a 40-[place] tapered bougie into the stomach. Robotic stapler green and blue loads 60 mm x 5 were used to create the sleeve. Initial firing was across the antrum of the stomach towards the angle of His. The staple line was completely hemostatic and linear without corkscrewing. Hemostasis was excellent. The space from the angularis incisura of the sleeve was approximately 4 cm. Attention is now brought to her gallbladder. Adhesions were identified along the infundibulum of the gallbladder and addressed using vessel sealer. The gallbladder fundus was retracted over the dome of the liver. Initial attention was brought to the infundibulum which was gently retracted in the inferior lateral approach. Using a grasper, the cystic duct including the cystic artery was carefully skeletonized. FIREFLY was used to identify the cystic artery and cystic structures. Large PLASTIC clips were used throughout the entire case. Using a clip wire strander 1 clip was placed proximally, and 1 clip was placed distally along the cystic duct and then cauterized. Again care was taken to avoid any injury to the biliary tree as the common bile duct was clearly visualized during this portion of dissection. Next, the cystic artery was sim ilarly clipped and cauterized. Electro-Bovie cautery was used to remove the gallbladder from the hepatic fossa. Hemostasis was checked and found to be adequate. I then went to the head of the bed to perform the intraoperative esophagogastroduodenoscopy leak test. The upper pole of the stomach was bathed using normal saline solution. The scope was withdrawn with careful inspection along the staple line for which no leaks were found along the entire length. Additionally, the sleeve was completely hemostatic without any encroachment along the angularis incisura. Its topology was a soft "J". No stricture was encountered upon placement of the scope. The GI tract was desufflated. The patient tolerated this portion of the procedure well. The scope was completely withdrawn. The robot was undocked. I then rescrubbed into case, whereby the irrigation fluid was aspirated from the abdominal cavity. Tisseal fibrin sealant was placed along the entire staple length. Once dried the Alvaro liver retractor was removed. Attention was now brought to removal of the specimens including the gallbladder. Gallbladder was removed using Endo Catch bag. The distal end of the sleeve gastrectomy specimen was brought out through the 12 mm port at the left upper quadrant. The specimen was gently removed en total, corresponding to 24 cm x 4 cm sleeve gastrectomy specimen. No contamination had occurred during this process. All instruments and pneumoperitoneum including irrigation fluid was removed from the abdominal cavity. The 12 mm port site was irrigated with warm normal saline solution and diluted hydron peroxide. The final incisions were closed using subcuticular interrupted suture of 4-0 Monocryl. Dermabond was applied to the skin once the skin had been cleansed. OptiFoam dressing was placed along the stomach extraction site. At the end of the procedure, needle, sponge, and instrument count was verified correct by the surgical endoscopist. The patient was taken to the postanesthesia care unit in stable condition. She had tolerated the procedure well. Intraoperative films and findings were reviewed with the patient's family. FINDINGS: 1. Negative intraoperative esophagogastrojejunoscopy leak test. 2. No hepatomegaly or large hiatus hernia. 3. Total of 5 staplers used including 1 - 60 mm green robot mary ann and 4 - 60 mm blue loads used to create the gastric sleeve. 4. Trocars placed 15 cm from xiphoid process 5. Sleeve gastrectomy 24 x 4 cm 6. Console time 52 minutes
[2019-03-01] MEDS ORDERED: ONDANSETRON 4 MG/2 ML VIAL IVP ONE (12:42)
[2019-03-01] MEDS ORDERED: fentaNYL PCA 500 MCG/50 ML BAG IV PRN (13:00)
[2019-03-01] MEDS ORDERED: HYDROmorphone 1 MG/ML 1 ML SYRINGE IVP ONE ×2 (13:00→13:16)
[2019-03-01] MEDS: 0.9% NACL WITH KCL 20 MEQ/L 1,000 ML IV SCH ×2 (14:10→19:55)
[2019-03-01] MEDS: ALBUTEROL NEBULIZED 2.5 MG/3 ML INHALATION SCH ×2 (15:16→19:27)
[2019-03-01] MEDS: DEXAMETHASONE SOD PHOSPHATE 4 MG/ML 1 ML VIAL IV SCH ×2 (17:25→23:15)
[2019-03-01] MEDS: SIMETHICONE 40 MG/0.6 ML DROPS 2,000 MG/30 ML BOTTLE PO SCH ×2 (17:29→23:15)
[2019-03-01] MEDS: HYOSCYAMINE ORAL DROPS 1.875 MG/15 ML BOTTLE PO SCH ×2 (17:31→23:15)
[2019-03-01] MEDS: METOCLOPRAMIDE 5 MG/ML 2 ML VIAL IVP SCH ×2 (17:33→23:15)
[2019-03-01] MEDS: ACETAMINOPHEN IV (For NPO) 1,000 MG in EMPTY BAG 1 BAG IVPB SCH ×2 (17:34→23:14)
[2019-03-02] MEDS: 0.9% NACL WITH KCL 20 MEQ/L 1,000 ML IV SCH (02:34)
[2019-03-02] MEDS: LACTATED RINGERS 1,000 ML IV SCH (03:50)
[2019-03-02] MEDS: METOCLOPRAMIDE 5 MG/ML 2 ML VIAL IVP SCH ×2 (05:10→11:12)
[2019-03-02] MEDS: ACETAMINOPHEN IV (For NPO) 1,000 MG in EMPTY BAG 1 BAG IVPB SCH ×2 (05:14→11:42)
[2019-03-02] MEDS: DEXAMETHASONE SOD PHOSPHATE 4 MG/ML 1 ML VIAL IV SCH ×2 (05:14→11:16)
[2019-03-02] MEDS: SIMETHICONE 40 MG/0.6 ML DROPS 2,000 MG/30 ML BOTTLE PO SCH ×2 (05:29→11:14)
[2019-03-02] MEDS: HYOSCYAMINE ORAL DROPS 1.875 MG/15 ML BOTTLE PO SCH ×2 (05:29→11:14)
[2019-03-02 07:21] LABS: Basophils % (A) 0 %; Eosinophils # (A) 0.1 k/uL (0-0.7); Eosinophils % (A) 1 %; HCT 37.1 % (34.0-46.0); HGB 12.8 gm/dL (11.4-16.0); Lymphocytes # (A) 0.7 k/uL (1.0-4.8); Lymphocytes % (A) 5 %; MCH 29.8 pg (25.0-35.0); MCHC 34.5 g/dL (31.0-37.0); MCV 86.2 fL (80.0-100.0); Mean Platelet Volume 7.4; Monocytes # (A) 0.3 k/uL (0-1.0); Monocytes % (A) 2 %; Neutrophils # (A) 12.3 k/uL (1.3-7.7); Neutrophils % (A) 92 %; Platelet Count 315 k/uL (150-450); RBC 4.31 m/uL (3.80-5.40); RDW 12.4 % (11.5-15.5); WBC 13.4 k/uL (3.8-10.6)
[2019-03-02 07:34] LABS: African American GFR (CKD) >90 (>60 ml/min/1.73 sqM); Anion Gap 8 mmol/L; Blood Urea Nitrogen 6 mg/dL (7-17); Carbon Dioxide 24 mmol/L (22-30); Chloride 107 mmol/L (98-107); Magnesium 1.9 mg/dL (1.6-2.3); Non-African American GFR(CKD) >90 (>60 ml/min/1.73 sqM); Phosphorus 2.6 mg/dL (2.5-4.5); Potassium 4.7 mmol/L (3.5-5.1); Sodium 139 mmol/L (137-145)
[2019-03-02] MEDS ORDERED: 1: MVI, ADULT NO.4 WITH VIT K 10 ML, THIAMINE 100 MG, FOLIC ACID 1 MG, POTASSIUM CHLORID IV SCH ×6 (08:00)
[2019-03-02] MEDS: ALBUTEROL NEBULIZED 2.5 MG/3 ML INHALATION SCH (08:03)
[2019-03-02 08:06] VITALS: BP 131/78; PULSE 97; RESP 12; TEMP 98
[2019-03-02] MEDS: SODIUM CHLORIDE 0.9% 1,000 ML IV SCH ×2 (08:38→09:54)
--- NOTE | 2019-03-02 08:44 | FL ---
EXAMINATION TYPE: FL UGI DATE OF EXAM: 03/02/2019 CLINICAL HISTORY: Status post gastric sleeve and cholecystectomy x1 day TECHNIQUE: Postoperative esophagram is performed utilizing oral Isovue-300. A total of 40 seconds of fluoroscopic time was utilized during procedure with 18 fluoroscopic images saved. COMPARISON: None. FINDINGS: The patient swallowed contrast without difficulty or delay. Esophageal peristalsis and mo tility are within normal limits. There is good flow of contrast along the diaphragmatic hiatus into proximal stomach and subsequent flow into gastric sleeve. There is good flow from distal sleeve into pylorus and duodenal sweep. Patient remains asymptomatic. There is no evidence of contrast extravasat ion to suggest leak. IMPRESSION: No evidence of leak or significant obstruction status post recent gastric sleeve surgery.
[2019-03-02] MEDS ORDERED: ENOXAPARIN 40 MG/0.4 ML SYRINGE SQ SCH (09:00)
[2019-03-02] MEDS ORDERED: PANTOPRAZOLE 40 MG/10 ML VIAL IV SCH (09:00)
--- NOTE | 2019-03-02 11:11 | P.DS ---
Providers Date of admission: 03/01/19 08:14 Expected date of discharge: 03/02/19 Attending physician: Citlali Cottrell Primary care physician: Stated None Hospital Course: 48-year-old female who underwent robotic-assisted laparoscopic sleeve gastrectomy and cholecystectomy with Dr. Cottrell on 03/01/2019. Patient is doing well postoperatively without any immediate complications. Postoperative esophagram completed negative for leak or obstruction. Patient has been tolerating liquid diet. Pain is controlled on oral medications. Vital signs are stable. She is stable for discharge home today. Please see EMR for further hospital course details. Discharge diagnosis 1. Morbid obesity due to excess calories 2. Body mass index of 37.9 3. Seasonal allergies 4. Osteoarthritis of the back 5. Osteoarthritis of the knee 6. Osteoarthritis of the hips 7. Osteoarthritis of the ankle 8. Osteoarthritis of the foot 9. Gallbladder disorder 10. Hypertensive heart disease 11. Hypertensive lower esophageal sphincter 12. Chronic gastritis 13. Hypercholesterolemia 14. Gallstones Nurse practitioner note has been reviewed by physician. Signing provider agrees with the documented findings, assessment, and plan of care. Plan - Discharge Summary Discharge Rx Participant: Yes New Discharge Prescriptions: New Bisacodyl [Dulcolax] 5 mg PO DAILY PRN #10 tablet. PRN Reason: Constipation Simethicone 40 mg/0.6 ml Drops [Mylicon Drops] 40 mg PO PCHS PRN #30 ml PRN Reason: gas Omeprazole 40 mg PO DAILY #30 cap Acetaminophen Oral Susp [Tylenol Oral Susp] 650 mg PO Q4H PRN #500 ml PRN Reason: Pain Ondansetron Odt [Zofran Odt] 4 mg PO Q8HR PRN #9 tab PRN Reason: Nausea Continue Cetirizine HCl 10 mg PO DAILY Discontinued Ergocalciferol [Vitamin D2 (DRISDOL)] 50,000 unit PO VELARDE Discharge Medication List Cetirizine HCl 10 mg PO DAILY 09/29/18 [History] Acetaminophen Oral Susp [Tylenol Oral Susp] 650 mg PO Q4H PRN #500 ml 03/02/19 [Rx] Bisacodyl [Dulcolax] 5 mg PO DAILY PRN #10 tablet. 03/02/19 [Rx] Omeprazole 40 mg PO DAILY #30 cap 03/02/19 [Rx] Ondansetron Odt [Zofran Odt] 4 mg PO Q8HR PRN #9 tab 03/02/19 [Rx] Simethicone 40 mg/0.6 ml Drops [Mylicon Drops] 40 mg PO PCHS PRN #30 ml 03/02/19 [Rx] [facility]Ref[facility] [place] [facility]05[facility] 10:00 am Patient Instructions/Handouts: *Surgery [facility] - Scopalamine Patch Instructions, Nutrition after Bariatric Surgery (DC), Laparoscopic Sleeve Gastrectomy (DC), Laparoscopic Cholecystectomy (DC) Activity/Diet/Wound Care/Special Instructions: No lifting over 4 pounds for 4 weeks You may shower. No soaking or tub baths Very light activity until you are reevaluated at your follow up appointment with your surgeon drink at least 64 ounces of fluids a day Avoid beverages with more than 6 g of sugar to prevent dumping syndrome Open or crush all medications bigger than the size of a tic-tac
[2019-03-02 11:40] VITALS: BMI 37.4
[2019-03-03] MEDS ORDERED: BISACODYL 5 MG TABLET.DR PO PRN (08:00)
== END 2019-03-02 12:40 | disposition home or self-care (01) | DRG 620 ==
LOC: 2ORMAIN 08:14 → 4SSUR 12:26
PROVIDERS: ADMIT Surgery Plastic and Reconstructive Surgery; ATTEND Surgery Plastic and Reconstructive Surgery
PROC: 0DJ08ZZ Inspection of Upper Intestinal Tract, Via Natural or Artificial Opening Endoscopic (ICD-10-PCS; principal; 2019-03-01 10:15)
PROC: 0DB64Z3 Excision of Stomach, Percutaneous Endoscopic Approach, Vertical (ICD-10-PCS; principal; 2019-03-01 10:15)
PROC: 8E0W4CZ Robotic Assisted Procedure of Trunk Region, Percutaneous Endoscopic Approach (ICD-10-PCS; principal; 2019-03-01 10:15)
PROC: 0FT44ZZ Resection of Gallbladder, Percutaneous Endoscopic Approach (ICD-10-PCS; principal; 2019-03-01 10:15)
DX: E66.01 Morbid (severe) obesity due to excess calories (principal); K80.10 Calculus of gallbladder with chronic cholecystitis without obstruction; E78.00 Pure hypercholesterolemia, unspecified; I11.9 Hypertensive heart disease without heart failure; J30.2 Other seasonal allergic rhinitis; K21.9 Gastro-esophageal reflux disease without esophagitis; K22.0 Achalasia of cardia; K29.50 Unspecified chronic gastritis without bleeding; M16.0 Bilateral primary osteoarthritis of hip; M17.10 Unilateral primary osteoarthritis, unspecified knee; M19.079 Primary osteoarthritis, unspecified ankle and foot; M47.9 Spondylosis, unspecified; Z68.37 Body mass index [BMI] 37.0-37.9, adult; Z80.49 Family history of malignant neoplasm of other genital organs; Z88.5 Allergy status to narcotic agent
CPT/HCPCS: 64488; 74240; 80051; 81025; 82310; 82565; 83735; 84100; 84520; 85025; 86850; 86900; 86901; 88304; 88307; 94640; 94760; 94762

== ENCOUNTER → 2019-03-05 | Outpatient (CLI) | payer BC ==
[2019-03-05 10:13] VITALS: BP 125/81; PULSE 91; RESP 16; TEMP 98.7; BMI 36.4
--- NOTE | 2019-03-05 15:57 | P.PN ---
Subjective Progress Note Date: 03/05/19 She is clinically doing very well. Tolerating over 60+ ounces fluids daily. No reports of abdominal pain. Dressing discontinued. No infection. Follow-up in 1 week for stage II and stage III diet. Objective - Vital Signs Vital signs: Vital Signs Temp 98.7 F 03/05/19 10:11 Pulse 91 03/05/19 10:11 Resp 16 03/05/19 10:11 BP 125/81 03/05/19 10:11 Pulse Ox Intake & Output 03/04/19 03/05/19 03/05/19 18:59 06:59 18:59 Weight 99.337 kg
== END | disposition home or self-care (01) ==
LOC: BARWHC3 09:46
PROVIDERS: ATTEND Surgery Plastic and Reconstructive Surgery
DX: Z48.815 Encounter for surgical aftercare following surgery on the digestive system (principal); Z01.810 Encounter for preprocedural cardiovascular examination; Z88.5 Allergy status to narcotic agent
CPT/HCPCS: 99211

== ENCOUNTER → 2019-04-02 | Outpatient (CLI) | payer BC ==
--- NOTE | 2019-04-02 11:23 | P.PN ---
Subjective Progress Note Date: 04/02/19 DATE OF SERVICE: 04/02/2019 CHIEF COMPLAINT: Morbid obesity HISTORY OF PRESENT ILLNESS: Carrie Call is a 48-year-old female status post sleeve gastrectomy and cholecystectomy, 03/01/2019. She is postop 1 month out. She is 1 month out. She denies gastroesophageal reflux. She denies abdominal pain. Her protein intake is less than 75 grams daily. She is barely eating 20 grams protein daily despite her pre-op and post-op bariatric education. At height of 5 feet 5 inches, her ideal body weight is 149 pounds. She comes in 205 pounds from 215 pounds, 3 weeks ago. She has lost 9 pounds in 3 weeks. Her body mass index is down from 38.2 to 34.3. Highest weight of 229 pounds. Lifetime weight loss of 23 pounds. Percent excess weight loss of 29%. She is 56 pounds overweight. PHYSICAL EXAM: VITAL SIGNS: Height 5 foot 5 inches, weight 205 pounds. BMI 34.4 Vital Signs Temp 98.2 F 04/02/19 11:29 Pulse 79 04/02/19 11:29 Resp BP 110/76 04/02/19 11:29 Pulse Ox GENERAL: Well-developed in no acute distress. HEENT: No scleral icterus. Extraocular movements grossly intact. Hears conversational speech. No nasal drainage. NECK: Supple without lymphadenopathy. CHEST: Nonlabored respirations with equal bilateral excursions. CARDIOVASCULAR: Regular rate and regular rhythm. Distal 2+ pulses. ABDOMEN: Obese, soft. Incision is healing well. No infection. MUSCULOSKELETAL: No clubbing, cyanosis. NEURO: No focal or lateralizing signs. Cranial nerves 2 through 12 grossly within normal limits. PSYCH: Appropriate affect. Alert and oriented to person, place and time. SKIN: Good skin turgor. Well perfused. ASSESSMENT: 1. Morbid obesity due to excess calories 2. Body mass index of 38.5 to 34.3 3. Seasonal allergies 4. Osteoarthritis of the back 5. Osteoarthritis of the knee 6. Osteoarthritis of the hips 7. Osteoarthritis of the ankle 8. Osteoarthritis of the foot 9. Inadequate protein intake 10. Hypertensive heart disease 11. Hypertensive lower esophageal sphincter 12. Chronic gastritis 13. Hypercholesterolemia 14. Gallstones 15. Status post sleeve gastrectomy and cholecystectomy PLAN: 1. Her protein intake continues to be inadequate despite her last visit, recommend protein intake 75 g daily. 2. Recommend bariatric labs 3. Follow up 3 months post op. Laboratory Last Values WBC 7.2 k/uL (3.8-10.6) 04/02/19 12:05 RBC 4.65 m/uL (3.80-5.40) 04/02/19 12:05 Hgb 13.8 gm/dL (11.4-16.0) 04/02/19 12:05 Hct 40.6 % (34.0-46.0) 04/02/19 12:05 MCV 87.3 fL (80.0-100.0) 04/02/19 12:05 MCH 29.8 pg (25.0-35.0) 04/02/19 12:05 MCHC 34.1 g/dL (31.0-37.0) 04/02/19 12:05 RDW 13.3 % (11.5-15.5) 04/02/19 12:05 Plt Count 311 k/uL (150-450) 04/02/19 12:05 PT 10.4 sec (9.0-12.0) 04/02/19 12:05 INR 1.0 (<1.2) 04/02/19 12:05 APTT 23.9 sec (22.0-30.0) 04/02/19 12:05 Sodium 143 mmol/L (135-145) 04/02/19 12:05 Potassium 4.0 mmol/L (3.5-5.5) 04/02/19 12:05 Chloride 103 mmol/L (96-109) 04/02/19 12:05 Carbon Dioxide 27.7 mmol/L (21.6-31.8) 04/02/19 12:05 Anion Gap 12.30 mmol/L (4.00-12.00) H 04/02/19 12:05 BUN 9.0 mg/dL (9.0-27.0) 04/02/19 12:05 Creatinine 0.5 mg/dL (0.6-1.5) L 04/02/19 12:05 Est GFR (CKD-EPI)AfAm 133.6 (60.0-200.0) 04/02/19 12:05 Est GFR (CKD-EPI)NonAf 115.3 (60.0-200.0) 04/02/19 12:05 BUN/Creatinine Ratio 18.00 Ratio (12.00-20.00) 04/02/19 12:05 Glucose 86 mg/dL (70-110) 04/02/19 12:[address] Glu mg/dL 94 04/02/19 12:05 Hemoglobin A1c 4.9 % (4.0-6.0) 04/02/19 12:05 Calcium 9.2 mg/dL (8.7-10.3) 04/02/19 12:05 Phosphorus 3.4 mg/dL (2.4-5.1) 04/02/19 12:05 Magnesium 1.6 mg/dL (1.5-2.4) 04/02/19 12:05 Iron 26 ug/dL (50-170) L 04/02/19 12:05 TIBC 243 ug/dL (228-460) 04/02/19 12:05 % Saturation 10.70 (12.00-45.00) L 04/02/19 12:05 Ferritin 142.1 ng/mL (10.0-291.0) 04/02/19 12:05 Total Bilirubin 0.5 mg/dL (0.3-1.2) 04/02/19 12:05 AST 18 U/L (13-35) 04/02/19 12:05 ALT 16 U/L (8-44) 04/02/19 12:05 Alkaline Phosphatase 45 U/L (41-126) 04/02/19 12:05 Total Protein 6.4 g/dL (6.2-8.2) 04/02/19 12:05 Albumin 4.40 g/dL (3.80-4.90) 04/02/19 12:05 Globulin 2.0 g/dL (1.6-3.3) 04/02/19 12:05 Albumin/Globulin Ratio 2.20 g/dL (1.60-3.17) 04/02/19 12:05 Prealbumin 11.0 mg/dL (18.0-42.0) L 04/02/19 12:05 Triglycerides 89.0 mg/dL (0.0-149.0) 04/02/19 12:05 Cholesterol 162 mg/dL (0-200) 04/02/19 12:05 LDL Cholesterol, Calc 93.2 mg/dL (0.0-131.0) 04/02/19 12:05 VLDL Cholesterol, Calc 17.80 mg/dL (5.00-40.00) 04/02/19 12:05 HDL Cholesterol 51.0 mg/dL (40.0-60.0) 04/02/19 12:05 Cholesterol/HDL Ratio 3.18 04/02/19 12:05 Vitamin A 20 ug/dL (38-106) L 04/02/19 12:05 Vitamin B1 31 ug/L (38-122) L 04/02/19 12:05 Vitamin B12 1189.0 pg/mL (200.0-944.0) H 04/02/19 12:05 Vitamin D 25-Hydroxy 38.9 ng/mL (30.0-100.0) 04/02/19 12:05 Folate 7.2 ng/mL 04/02/19 12:05 TSH 1.310 uIU/mL (0.350-5.500) 04/02/19 12:05 PTH Intact 40.4 pg/mL (14.0-72.0) 04/02/19 12:05 Copper 1417 ug/L (810-1990) 04/02/19 12:05 Selenium 93 mcg/L (63-160) 04/02/19 12:05 Zinc 63 ug/dL (60-130) 04/02/19 12:05 Iron is low Pre-albumin is low Vitamin A is low Objective - Labs CBC & Chem 7: 04/02/19 12:05 04/02/19 12:05
[2019-04-02 11:31] VITALS: BP 110/76; PULSE 79; TEMP 98.2; BMI 34.2
[2019-04-02 12:21] LABS: HCT 40.6 % (34.0-46.0); HGB 13.8 gm/dL (11.4-16.0); MCH 29.8 pg (25.0-35.0); MCHC 34.1 g/dL (31.0-37.0); MCV 87.3 fL (80.0-100.0); Mean Platelet Volume 7.6; Platelet Count 311 k/uL (150-450); RBC 4.65 m/uL (3.80-5.40); RDW 13.3 % (11.5-15.5); WBC 7.2 k/uL (3.8-10.6)
[2019-04-02 12:34] LABS: Partial Thromboplastin Time 23.9 sec (22.0-30.0); Prothrombin Time 10.4 sec (9.0-12.0)
[2019-04-02 20:35] LABS: % Iron Saturation 10.7 (12.00-45.00); African American GFR (CKD) 133.6 (60.0-200.0); Albumin 4.4 g/dL (3.80-4.90); Albumin/Globulin Ratio 2.2 (1.60-3.17); Anion Gap 12.3 mmol/L (4.00-12.00); Calcium 9.2 mg/dL (8.7-10.3); Carbon Dioxide 27.7 mmol/L (21.6-31.8); Chol/HDL Ratio 3.18; LDL Cholesterol,Calculated 93.2 mg/dL (0.0-131.0); Magnesium 1.6 mg/dL (1.5-2.4); Non-African American GFR(CKD) 115.3 (60.0-200.0); Phosphorus 3.4 mg/dL (2.4-5.1); Total Bilirubin 0.5 mg/dL (0.3-1.2); Total Protein 6.4 g/dL (6.2-8.2); VLDL Calculation 17.8 mg/dL (5.00-40.00)
[2019-04-02 20:44] LABS: Ferritin 142.1 ng/mL (10.0-291.0)
[2019-04-02 20:58] LABS: Hemoglobin A1C 4.9 % (4.0-6.0)
[2019-04-02 21:32] LABS: Folate, Serum 7.2 ng/mL
[2019-04-05 12:42] LABS: Zinc, Serum 63 ug/dL (60-130)
[2019-04-06 06:49] LABS: Vitamin A 20 ug/dL (38-106)
[2019-04-07 00:23] LABS: Selenium 93 mcg/L (63-160)
[2019-04-07 06:25] LABS: Vit B1(Thiamine) 31 ug/L (38-122)
== END | disposition home or self-care (01) ==
LOC: BARWHC3 09:43
PROVIDERS: ATTEND Surgery Plastic and Reconstructive Surgery
DX: Z48.815 Encounter for surgical aftercare following surgery on the digestive system (principal); E66.01 Morbid (severe) obesity due to excess calories; J30.2 Other seasonal allergic rhinitis; M17.10 Unilateral primary osteoarthritis, unspecified knee; K22.8 Other specified diseases of esophagus; K29.50 Unspecified chronic gastritis without bleeding; M16.0 Bilateral primary osteoarthritis of hip; M19.079 Primary osteoarthritis, unspecified ankle and foot; E63.8 Other specified nutritional deficiencies; I11.9 Hypertensive heart disease without heart failure; E78.00 Pure hypercholesterolemia, unspecified; K80.20 Calculus of gallbladder without cholecystitis without obstruction; Z90.49 Acquired absence of other specified parts of digestive tract; Z68.34 Body mass index [BMI] 34.0-34.9, adult
CPT/HCPCS: 80053; 80061; 82306; 82525; 82607; 82728; 82746; 83036; 83540; 83550; 83735; 83970; 84100; 84134; 84255; 84425; 84443; 84590; 84630; 85027; 85610; 85730; 99211

== ENCOUNTER → 2019-06-30 | Outpatient (CLI) | payer BC ==
[2019-06-30 14:40] VITALS: BP 116/71; PULSE 76; RESP 16; TEMP 98.8; BMI 31.8
--- NOTE | 2019-06-30 15:04 | P.PN ---
Subjective Progress Note Date: 06/30/19 DATE OF SERVICE: 06/30/2019 CHIEF COMPLAINT: Status post sleeve gastrectomy HISTORY OF PRESENT ILLNESS: Carrie Call is a 48-year-old female status post sleeve gastrectomy and cholecystectomy, 03/01/2019. She is 4 months out. She is doing better. No gastroesophageal reflux disease. He denies any abdominal pain. She is food logging. She is doing Ensure Max. She reports pressure of the chest with quick eating. She has new hair loss. She is taking biotin. Her goal is 170 pounds. Her protein intake continues to be subpar at barely 50 grams daily. At height of 5 feet 5 inches, her ideal body weight is 149 pounds. She comes in 191 pounds from 205 pounds, 3 months ago. She has lost 15 pounds in 3 months. Her body mass index is down from 38.2 to 31.8. Highest weight of 229 pounds. Lifetime weight loss of 23 pounds. Percent excess weight loss of 29%. She is 56 pounds overweight. PHYSICAL EXAM: VITAL SIGNS: Height 5 foot 5 inches, weight 191 pounds. BMI 31.8 Vital Signs Temp 98.8 F 06/30/19 14:38 Pulse 76 06/30/19 14:38 Resp 16 06/30/19 14:38 BP 116/71 06/30/19 14:38 Pulse Ox Intake & Output 06/30/19 07/01/19 07/01/19 18:59 06:59 18:59 Weight 86.636 kg GENERAL: Well-developed in no acute distress. HEENT: No scleral icterus. Extraocular movements grossly intact. Hears conversational speech. No nasal drainage. NECK: Supple without lymphadenopathy. CHEST: Nonlabored respirations with equal bilateral excursions. CARDIOVASCULAR: Regular rate and regular rhythm. Distal 2+ pulses. ABDOMEN: Obese, soft. Incision is healing well. No infection. MUSCULOSKELETAL: No clubbing, cyanosis. NEURO: No focal or lateralizing signs. Cranial nerves 2 through 12 grossly within normal limits. PSYCH: Appropriate affect. Alert and oriented to person, place and time. SKIN: Good skin turgor. Well perfused. LABS: Bariatric labs reviewed with low vitamin B1 and thiamine ASSESSMENT: 1. Morbid obesity due to excess calories 2. Body mass index of 38.5 to 31.8 3. Seasonal allergies 4. Osteoarthritis of the back 5. Osteoarthritis of the knee 6. Osteoarthritis of the hips 7. Osteoarthritis of the ankle 8. Osteoarthritis of the foot 9. Inadequate protein intake 10. Hypertensive heart disease 11. Hypertensive lower esophageal sphincter 12. Chronic gastritis 13. Hypercholesterolemia 14. Gallstones 15. Status post sleeve gastrectomy and cholecystectomy PLAN: 1. Recommend bariatric labs 2. Recommen new multivitamin with Vitamin A, iron, and B complex supplement 3. Increase protein intake to 75 grams daily to address hair loss and weight loss management Objective - Vital Signs Vital signs: Vital Signs Temp 98.8 F 06/30/19 14:38 Pulse 76 06/30/19 14:38 Resp 16 06/30/19 14:38 BP 116/71 06/30/19 14:38 Pulse Ox Intake & Output 06/29/19 06/30/19 06/30/19 18:59 06:59 18:59 Weight 86.636 kg
== END | disposition home or self-care (01) ==
LOC: BARWHC3 14:35
PROVIDERS: ATTEND Surgery Plastic and Reconstructive Surgery
DX: E66.01 Morbid (severe) obesity due to excess calories (principal); Z68.31 Body mass index [BMI] 31.0-31.9, adult; J30.2 Other seasonal allergic rhinitis; M47.816 Spondylosis without myelopathy or radiculopathy, lumbar region; M17.9 Osteoarthritis of knee, unspecified; M16.9 Osteoarthritis of hip, unspecified; M19.079 Primary osteoarthritis, unspecified ankle and foot; E44.1 Mild protein-calorie malnutrition; I11.9 Hypertensive heart disease without heart failure; K22.0 Achalasia of cardia; K29.50 Unspecified chronic gastritis without bleeding; E78.00 Pure hypercholesterolemia, unspecified; K80.20 Calculus of gallbladder without cholecystitis without obstruction; Z90.49 Acquired absence of other specified parts of digestive tract; Z98.84 Bariatric surgery status
CPT/HCPCS: 99211

== ENCOUNTER → 2019-08-27 | Outpatient (CLI) | payer BC ==
[2019-08-27 12:51] LABS: HCT 41.4 % (34.0-46.0); HGB 13.5 gm/dL (11.4-16.0); MCHC 32.6 g/dL (31.0-37.0); Mean Platelet Volume 7.2; Platelet Count 268 k/uL (150-450); RBC 4.65 m/uL (3.80-5.40); RDW 13.2 % (11.5-15.5); WBC 5.7 k/uL (3.8-10.6)
[2019-08-27 12:59] LABS: INR 0.9 (<1.2); Partial Thromboplastin Time 23.7 sec (22.0-30.0); Prothrombin Time 9.9 sec (9.0-12.0)
[2019-08-27 18:47] LABS: % Iron Saturation 30.23 (12.00-45.00); African American GFR (CKD) 119.6 (60.0-200.0); Albumin 4.5 g/dL (3.80-4.90); Albumin/Globulin Ratio 2.05 (1.60-3.17); Anion Gap 9.4 mmol/L (4.00-12.00); BUN/Creat Ratio 15.71 Ratio (12.00-20.00); Calcium 9.3 mg/dL (8.7-10.3); Carbon Dioxide 26.6 mmol/L (21.6-31.8); Chol/HDL Ratio 2.92; Globulin 2.2 g/dL (1.6-3.3); Magnesium 1.8 mg/dL (1.5-2.4); Non-African American GFR(CKD) 103.2 (60.0-200.0); Phosphorus 3.8 mg/dL (2.4-5.1); Potassium 4.1 mmol/L (3.5-5.5); Total Bilirubin 0.9 mg/dL (0.3-1.2); Total Protein 6.7 g/dL (6.2-8.2)
[2019-08-27 19:00] LABS: Folate, Serum 14.2 ng/mL
[2019-08-27 19:53] LABS: Hemoglobin A1C 4.7 % (4.0-6.0)
[2019-08-30 14:34] LABS: Zinc, Serum 66 ug/dL (60-130)
[2019-08-31 07:59] LABS: Vitamin A 39 ug/dL (38-106)
[2019-09-01 08:14] LABS: Vit B1(Thiamine) 75 ug/L (38-122)
[2019-09-01 20:00] LABS: Selenium 90 mcg/L (63-160)
== END | disposition home or self-care (01) ==
LOC: LABWHC1 11:13
PROVIDERS: ATTEND Surgery Plastic and Reconstructive Surgery
DX: E21.1 Secondary hyperparathyroidism, not elsewhere classified (principal); E89.1 Postprocedural hypoinsulinemia; D50.9 Iron deficiency anemia, unspecified; K90.9 Intestinal malabsorption, unspecified; E55.9 Vitamin D deficiency, unspecified; K74.1 Hepatic sclerosis; N19 Unspecified kidney failure; K50.90 Crohn's disease, unspecified, without complications
CPT/HCPCS: 36415; 80053; 80061; 82306; 82525; 82607; 82728; 82746; 83036; 83540; 83550; 83735; 83970; 84100; 84134; 84255; 84425; 84443; 84590; 84630; 85027; 85610; 85730

== ENCOUNTER → 2019-09-01 | Outpatient (CLI) | payer BC ==
[2019-09-01 14:37] VITALS: BP 113/76; PULSE 83; RESP 16; TEMP 99.1; BMI 30.4
--- NOTE | 2019-09-01 15:16 | P.PN ---
Subjective Progress Note Date: 09/01/19 She has trouble with breads. She has trouble oranges. She reports abdominal pain with eating certain foods. She reports hair loss. She is getting 70 grams of protein daily. She is about to get biotin. No troubles with balance and memory loss. All blood work done. Recommend biotin Objective - Vital Signs Vital signs: Vital Signs Temp 99.1 F 09/01/19 14:34 Pulse 83 09/01/19 14:34 Resp 16 09/01/19 14:34 BP 113/76 09/01/19 14:34 Pulse Ox Intake & Output 08/31/19 09/01/19 09/01/19 18:59 06:59 18:59 Weight 83.007 kg
== END | disposition home or self-care (01) ==
LOC: BARWHC3 14:09
PROVIDERS: ATTEND Surgery Plastic and Reconstructive Surgery
DX: E66.01 Morbid (severe) obesity due to excess calories (principal); Z68.30 Body mass index [BMI] 30.0-30.9, adult
CPT/HCPCS: 97803; 99211

== ENCOUNTER → 2020-02-23 | Outpatient (CLI) | payer BC ==
[2020-02-23 16:31] VITALS: BP 129/95; PULSE 76; RESP 18; TEMP 98.5
--- NOTE | 2020-02-23 16:47 | P.PN ---
Subjective Progress Note Date: 02/23/20 DATE OF SERVICE: 02/23/2020 CHIEF COMPLAINT: Status post sleeve gastrectomy HISTORY OF PRESENT ILLNESS: Carrie Call is a 49-year-old female status post sleeve gastrectomy and cholecystectomy, 03/01/2019. She is 1 year out. She comes in without problems with abdominal pain or gastroesophageal reflux disease. She is keeping up with weight loss. She is 166 pounds. She wants to get down to 150 pounds. She reports redundant skin of the abdomen. At height of 5 feet 5 inches, her ideal body weight is 149 pounds. She comes in 166 pounds from 172 pounds, 3 months ago. She has lost pounds in 3 months. Her body mass index is down from 38.2 to 27.6 Highest weight is 230 pounds. Lifetime weight loss of 64 pounds. Percent excess weight loss of 79 %. She is 17 pounds overweight. PHYSICAL EXAM: VITAL SIGNS: Height 5 foot 5 inches, weight 166 pounds. BMI 27.6 Vital Signs Temp 98.5 F 02/23/20 16:18 Pulse 76 02/23/20 16:18 Resp 18 02/23/20 16:18 BP 129/95 02/23/20 16:18 Pulse Ox GENERAL: Well-developed in no acute distress. HEENT: No scleral icterus. Extraocular movements grossly intact. Hears conversational speech. No nasal drainage. NECK: Supple without lymphadenopathy. CHEST: Nonlabored respirations with equal bilateral excursions. CARDIOVASCULAR: Regular rate and regular rhythm. Distal 2+ pulses. ABDOMEN: Soft, non-tender, non-distended. MUSCULOSKELETAL: No clubbing, cyanosis. NEURO: No focal or lateralizing signs. Cranial nerves 2 through 12 grossly within normal limits. PSYCH: Appropriate affect. Alert and oriented to person, place and time. SKIN: Good skin turgor. Well perfused. LABS: Reviewed. Zinc is low. Iron is low. Pre-albumin is low. Vitamin A is low. ASSESSMENT: 1. Morbid obesity due to excess calories 2. Body mass index of 38.5 to 27.6 3. Seasonal allergies 4. Osteoarthritis of the back 5. Osteoarthritis of the knee 6. Osteoarthritis of the hips 7. Osteoarthritis of the ankle 8. Osteoarthritis of the foot 9. Inadequate protein intake 10. Hypertensive heart disease 11. Hypertensive lower esophageal sphincter 12. Chronic gastritis 13. Hypercholesterolemia 14. Gallstones 15. Status post sleeve gastrectomy and cholecystectomy 16. Iron deficiency 17. Zinc deficiency 18. Vitamin A deficiency PLAN: 1. Recommend bariatric labs 2. Monitor for panniculitis. Objective - Vital Signs Vital signs: Vital Signs Temp 98.5 F 02/23/20 16:18 Pulse 76 02/23/20 16:18 Resp 18 02/23/20 16:18 BP 129/95 02/23/20 16:18 Pulse Ox
== END | disposition home or self-care (01) ==
LOC: BARWHC3 15:54
PROVIDERS: ATTEND Surgery Plastic and Reconstructive Surgery
DX: E66.01 Morbid (severe) obesity due to excess calories (principal); M17.10 Unilateral primary osteoarthritis, unspecified knee; M16.0 Bilateral primary osteoarthritis of hip; M19.079 Primary osteoarthritis, unspecified ankle and foot; I11.9 Hypertensive heart disease without heart failure; K22.0 Achalasia of cardia; K29.50 Unspecified chronic gastritis without bleeding; E78.00 Pure hypercholesterolemia, unspecified; E61.1 Iron deficiency; E50.9 Vitamin A deficiency, unspecified; K80.20 Calculus of gallbladder without cholecystitis without obstruction; Z68.38 Body mass index [BMI] 38.0-38.9, adult; Z98.84 Bariatric surgery status; Z90.49 Acquired absence of other specified parts of digestive tract
CPT/HCPCS: 99211

== ENCOUNTER → 2020-03-14 | Outpatient (CLI) | payer BC ==
[2020-03-14 12:45] LABS: HCT 41.5 % (34.0-46.0); MCH 30.1 pg (25.0-35.0); MCHC 33.7 g/dL (31.0-37.0); MCV 89.3 fL (80.0-100.0); Mean Platelet Volume 6.7; Platelet Count 243 k/uL (150-450); RBC 4.64 m/uL (3.80-5.40); RDW 12.5 % (11.5-15.5); WBC 5.8 k/uL (3.8-10.6)
[2020-03-14 21:35] LABS: Hemoglobin A1C 4.8 % (4.0-6.0)
[2020-03-15 01:03] LABS: % Iron Saturation 38.11 (12.00-45.00); African American GFR (CKD) 124.9 (60.0-200.0); Albumin 4.4 g/dL (3.80-4.90); Albumin/Globulin Ratio 2.2 (1.60-3.17); Anion Gap 5.2 mmol/L (4.00-12.00); BUN/Creat Ratio 13.33 Ratio (12.00-20.00); Calcium 9.2 mg/dL (8.7-10.3); Carbon Dioxide 31.8 mmol/L (21.6-31.8); Chol/HDL Ratio 2.79; LDL Cholesterol,Calculated 116.6 mg/dL (0.0-131.0); Magnesium 1.9 mg/dL (1.5-2.4); Non-African American GFR(CKD) 107.8 (60.0-200.0); Phosphorus 4.2 mg/dL (2.4-5.1); Potassium 3.8 mmol/L (3.5-5.5); Total Bilirubin 0.7 mg/dL (0.3-1.2); Total Protein 6.4 g/dL (6.2-8.2); VLDL Calculation 14.4 mg/dL (5.00-40.00)
[2020-03-15 01:16] LABS: Ferritin 48.4 ng/mL (10.0-291.0)
[2020-03-15 01:24] LABS: Folate, Serum 19.5 ng/mL
[2020-03-15 03:20] LABS: INR 0.99 (0.90-1.11); Partial Thromboplastin Time 27.1 sec (23.5-31.0); Prothrombin Time 10.7 sec (9.9-11.9)
[2020-03-15 12:31] LABS: Vitamin A 32 ug/dL (38-106)
[2020-03-15 13:44] LABS: Zinc, Serum 72 ug/dL (60-130)
[2020-03-16 06:37] LABS: Vit B1(Thiamine) 73 ug/L (38-122)
== END | disposition home or self-care (01) ==
LOC: LABWHC1 11:54
PROVIDERS: ATTEND Surgery Plastic and Reconstructive Surgery
DX: E89.1 Postprocedural hypoinsulinemia (principal); K90.89 Other intestinal malabsorption; E55.9 Vitamin D deficiency, unspecified; K74.1 Hepatic sclerosis; N19 Unspecified kidney failure; K50.90 Crohn's disease, unspecified, without complications; E66.01 Morbid (severe) obesity due to excess calories; D50.8 Other iron deficiency anemias
CPT/HCPCS: 36415; 80053; 80061; 82306; 82525; 82607; 82728; 82746; 83036; 83540; 83550; 83735; 83970; 84100; 84134; 84255; 84425; 84443; 84590; 84630; 85027; 85610; 85730

== ENCOUNTER → 2023-04-02 | Outpatient (CLI) | payer BC ==
--- NOTE | 2023-04-03 11:00 | XR ---
EXAMINATION TYPE: XR shoulder complete 3 views RT, XR elbow complete 3 views RT DATE OF EXAM: 04/02/2023 Comparison: None Clinical History: 52-year-old female pain for months, M25.511 Findings: Right shoulder: AC joint appears congruent and intact. Subacromial space is preserved. No tendinous or bursal calcifi cations. No acute fracture, subluxation, or dislocation. Right elbow: No joint effusion. No acute fracture, subluxation, or dislocation. Impression: Right shoulder and right elbow: No acute osseous abnormality seen.
== END | disposition home or self-care (01) ==
LOC: RADXRMAIN 16:19
PROVIDERS: ATTEND Nurse Practitioner Women's Health
DX: M25.511 Pain in right shoulder (principal); M25.521 Pain in right elbow

== ENCOUNTER → 2023-07-17 | Outpatient (CLI) | payer BC, OTHER ==
--- NOTE | 2023-07-17 21:24 | MR ---
EXAMINATION TYPE: MR shoulder RT wo con DATE OF EXAM: 07/17/2023 COMPARISON: None HISTORY: Rt shoulder pain TECHNIQUE: Multiplanar, multisequence imaging of the right shoulder is performed without contrast. FINDINGS: There is no bone contusion or fracture. There are multiple subchondral cysts near the attachment of t he infraspinatus tendon. There is moderate osteoarthritic change of the AC joint resulting in mild shoulder impingement. There is mild subcutaneous acromial bursitis. There is mild thickening and mild increased signal intensity within the supraspinatus and infraspinou s tendons consistent with tendinosis but no discrete tear. The subscapularis tendon is intact. The biceps tendon is normal in signal intensity and position within the bicipital groove. The biceps anchor is intact but a small tear at the attachment of the biceps anchor to the superior cartilaginou s labrum is suspected which would indicate a small SLAP injury. IMPRESSION: 1. Moderate arthritic change of the AC joint resulting in mild shoulder impingement. 2. Mild tendinosis of the supraspinatus and infraspinatus tendons without discrete tear. There is no rotator cuff tear. 3. Suspect small SLAP injury as described above 4. Mild subtle acromial bursitis.
== END | disposition home or self-care (01) ==
LOC: RADMRIMAIN 18:54
PROVIDERS: ATTEND Orthopaedic Surgery
DX: M75.51 Bursitis of right shoulder (principal); M25.811 Other specified joint disorders, right shoulder; M13.811 Other specified arthritis, right shoulder

== ENCOUNTER → 2023-07-28 | Outpatient (CLI) | payer BC, OTHER ==
--- NOTE | 2023-07-28 18:36 | XR ---
EXAMINATION TYPE: XR ribs RT w pa chest xray DATE OF EXAM: 07/28/2023 6:09 PM CLINICAL INDICATION:Female, 52 years old with history of W19.XXA,UNSPECIFIED FALL, S22.31XB, R29.898; COMPARISON: 07/28/2023. TECHNIQUE: XR ribs RT w pa chest xray; Frontal and oblique views of the ribs with frontal chest radio graph. FINDINGS: The ribs have a normal appearance. No evidence of fracture. Overall, the lungs are clear. The cardiac silhouette is normal in size. The remaining osseous structures are intact. IMPRESSION: No acute osseous pathology.
== END | disposition home or self-care (01) ==
LOC: RADXRMAIN 17:28
PROVIDERS: ATTEND Family Medicine
DX: S22.31XB Fracture of one rib, right side, initial encounter for open fracture (principal); R29.898 Other symptoms and signs involving the musculoskeletal system; W19.XXXA Unspecified fall, initial encounter

== ENCOUNTER 2024-07-03 06:49 | Emergency (ER) | payer BC ==
--- NOTE | 2024-07-03 07:25 | ED ---
General Adult HPI - General Chief complaint: Allergic Reaction Stated complaint: Allergic Reaction Time Seen by Provider: 07/03/24 07:02 Source: patient, RN notes reviewed Mode of arrival: ambulatory Limitations: no limitations - History of Present Illness Initial comments: 53-year-old female presents to the emergency department for evaluation of rash t hroughout her body. Patient states that this started on . Patient notes that she was started on Bactrim 6 days prior to this. She notes that she is since discontinued this medication. She was given a dose of IM steroids at her primary care provider's office on . She also took a dose of prednisone yesterday 40 mg. She has been utilizing topical Benadryl. She also took an [place] hives. She states that she was feeling better yesterday evening and then woke up again around 12:30 AM today feeling extremely itchy. She denies any recent fever, chills. - Related Data Home Medications Medication Instructions Recorded Confirmed Multivitamins, Thera [Multivitamin 1 tab PO DAILY 04/02/19 02/23/20 (formulary)] Biotin 10,000 mcg PO DAILY 07/01/19 02/23/20 Vitamin A [Vitamin A (8,000 Units 8,000 unit PO DAILY 02/23/20 02/23/20 = 2,400 MCG)] Allergies Allergy/AdvReac Type Severity Reaction Status Date / Time codeine Allergy Rash/Hives Verified 07/03/24 07:00 Review of Systems ROS Statement: Those systems with pertinent positive or pertinent negative responses have been documented in the HPI. ROS Other: All systems not noted in ROS Statement are negative. Past Medical History Past Medical History: No Reported History Additional Past Medical History / Comment(s): HAD HIVES ON AND OFF FOR 2 MONTHS NOV 2018 History of Any Multi-Drug Resistant Organisms: None Reported Past Surgical History: Bariatric Surgery, Breast Surgery, Uterine Ablation Additional Past Surgical History / Comment(s): BILATERAL Breast enlargement surgery. sleeve gastrectomy 03-01-19 (Dr. Cottrell) Past Anesthesia/Blood Transfusion Reactions: No Reported Reaction Past Psychological History: No Psychological Hx Reported Smoking Status: Never smoker Past Alcohol Use History: Rare Past Drug Use History: None Reported - Past Family History Mother Family Medical History: Cancer Additional Family Medical History / Comment(s): UTERINE CA General Exam Limitations: no limitations General appearance: alert, in no apparent distress Head exam: Present: atraumatic, normocephalic, normal inspection Eye exam: Present: normal appearance, PERRL, EOMI. Absent: scleral icterus, conjunctival injection, periorbital swelling ENT exam: Present: normal exam, mucous membranes moist Respiratory exam: Present: normal lung sounds bilaterally. Absent: respiratory distress, wheezes, rales, rhonchi, stridor Cardiovascular Exam: Present: regular rate, normal rhythm, normal heart sounds. Absent: systolic murmur, diastolic murmur, rubs, gallop, clicks Extremities exam: Present: normal inspection, full ROM, normal capillary refill. Absent: tenderness, pedal edema, joint swelling, calf tenderness Neurological exam: Present: alert, oriented X3 Psychiatric exam: Present: normal affect, normal mood Skin exam: Present: warm, dry, intact, rash. Absent: normal color Course Vital Signs 07/03/24 07/03/24 07/03/24 06:54 08:02 09:40 Temperature 97.9 F 98.0 F Pulse Rate 101 H 88 82 Respiratory 18 17 17 Rate Blood Pressure 129/87 105/67 117/61 O2 Sat by Pulse 100 99 98 Oximetry Medical Decision Making - Medical Decision Making Was pt. sent in by a medical professional or institution (Dr. PA, YIELD IMPROVEMENT ENGINEER, urgent care, hospital, or intermediate...) When possible be specific @ -No Did you speak to anyone other than the patient for history (EMS, parent, family, police, friend...)? What history was obtained from this source @ -No Did you review nursing and triage notes (agree or disagree)? Why? @ -I reviewed and agree with nursing and triage notes Were old charts reviewed (outside hosp., previous admission, EMS record, old EKG, old radiological studies, urgent care reports/EKG's, intermediate records)? Report findings @ -No old charts were reviewed Differential Diagnosis (chest pain, altered mental status, abdominal pain women, abdominal pain men, vaginal bleeding, weakness, fever, dyspnea, syncope, headache, dizziness, GI bleed, back pain, seizure, CVA, palpatations, mental health, musculoskeletal)? @ -Allergic reaction, SJS, contact dermatitis, atopic dermatitis, this list is not all inclusive EKG interpreted by me (3pts min.). @ -None X-rays interpreted by me (1pt min.). @ -None done CT interpreted by me (1pt min.). @ -None done U/S interpreted by me (1pt. min.). @ -None done What testing was considered but not performed or refused? (CT, X-rays, U/S, labs)? Why? @ -None What meds were considered but not given or refused? Why? @ -None Did you discuss the management of the patient with other professionals (professionals i.e. , PA, YIELD IMPROVEMENT ENGINEER, lab, RT, psych nurse, social worker delinquency prevention, geographic information system surveyor, teacher, loan workout officer, caser shoe parts)? Give summary @ -No Was smoking cessation discussed for >3mins.? @ -No Was critical care preformed (if so, how long)? @ -No Were there social determinants of health that impacted care today? How? (Homelessness, low income, unemployed, alcoholism, drug addiction, transportation, low edu. Level, literacy, decrease access to med. care, retirement, rehab)? @ -No Was there de-escalation of care discussed even if they declined (Discuss DNR or withdrawal of care, Hospice)? DNR status @ -No What co-morbidities impacted this encounter? (DM, HTN, Smoking, COPD, CAD, Cancer, CVA, ARF, Chemo, Hep., AIDS, mental health diagnosis, sleep apnea, morb id obesity)? @ -None Was patient admitted / discharged? Hospital course, mention meds given and rou te, prescriptions, significant lab abnormalities, going to OR and other pertinent info. @ -Discharge. Patient presented the emergency department for evaluation of a truncal and upper and lower extremity rash.Laboratory studies obtained revealing no significant leukocytosis, hemoglobin 12.9; CMP reveals mild hypokalemia with a potassium of 3.4. This was replaced orally. Patient was provided IV steroids, Benadryl, Pepcid. She had significant improvement in her symptoms. She will be discharged home advised to do this at home. She is understanding agreeable with plan. Patient stable at time of discharge. Case discussed with Dr. Noel. Undiagnosed new problem with uncertain prognosis? @ -No Drug Therapy requiring intensive monitoring for toxicity (Heparin, Nitro, Insulin, Cardizem)? @ -No Were any procedures done? @ -No Diagnosis/symptom? @ -Allergic reaction Acute, or Chronic, or Acute on Chronic? @ -Acute Uncomplicated (without systemic symptoms) or Complicated (systemic symptoms)? @ -Uncomplicated Side effects of treatment? @ -No Exacerbation, Progression, or Severe Exacerbation? @ -No Poses a threat to life or bodily function? How? (Chest pain, [place], [place], pneumonia, PE, COPD, DKA, ARF, appy, cholecystitis, CVA, Diverticulitis, Homicidal, Suicidal, threat to staff... and all critical care pts) @ -No - Lab Data Result diagrams: 07/03/24 08:19 07/03/24 07:58 Lab Results 07/03/24 07/03/24 Range/Units 07:58 08:19 WBC 5.79 (4.50-10.00) 10*3/uL RBC 4.45 (4.10-5.20) 10*6/uL Hgb 12.9 (12.0-15.0) g/dL Hct 37.8 (37.2-46.3) % MCV 84.9 (80.0-97.0) fL MCH 29.0 (27.0-32.0) pg MCHC 34.1 (32.0-37.0) g/dL Plt Count 237 (140-440) 10*3/uL MPV 9.3 L (9.5-12.2) fL Immature Gran % (Auto) 0.2 % Neutrophils % 57.4 % Lymphocytes % 30.7 % Monocytes % 10.2 % Eosinophils % 1.2 % Basophils % 0.3 % Immature Gran # 0.01 (0.00-0.04) 10*3/uL Neutrophils # 3.32 (1.80-7.70) 10*3/uL Lymphocytes # 1.78 (0.90-5.00) 10*3/uL Monocytes # 0.59 (0.20-1.00) 10*3/uL Eosinophils # 0.07 (0.04-0.35) 10*3/uL Basophils # 0.02 (0.00-0.10) 10*3/uL Manual Slide Review Performed Sodium 139 (137-145) mmol/L Potassium 3.4 L (3.5-5.1) mmol/L Chloride 103 (98-107) mmol/L Carbon Dioxide 27 (22-30) mmol/L Anion Gap 9 mmol/L BUN 11 (7-17) mg/dL Creatinine 0.47 L (0.52-1.04) mg/dL Est GFR (CKD-EPI)AfAm >90 (>60 ml/min/1.73 sqM) Est GFR (CKD-EPI)NonAf >90 (>60 ml/min/1.73 sqM) Glucose 86 (74-99) mg/dL Calcium 9.6 (8.4-10.2) mg/dL Total Bilirubin 0.7 (0.2-1.3) mg/dL AST 29 (14-36) U/L ALT 17 (4-34) U/L Alkaline Phosphatase 52 (38-126) U/L Total Protein 7.4 (6.3-8.2) g/dL Albumin 4.4 (3.5-5.0) g/dL Disposition Clinical Impression: Urticaria Disposition: HOME SELF-CARE Condition: Stable Instructions (If sedation given, give patient instructions): General Allergic Reaction (ED) Additional Instructions: Please follow-up with your doctor. Utilize antihistamine such as Benadryl, Zyrtec, or Claritin and Pepcid. Return to the emergency department for new or worsening symptoms Is patient prescribed a controlled substance at d/c from ED?: No Referrals: Bennie Rodriguez Jr, [Primary Care Provider] - 1-2 days
[2024-07-03] MEDS: FAMOTIDINE 20 MG/2 ML VIAL IV STA (07:44)
[2024-07-03] MEDS: DEXAMETHASONE SOD PHOSPHATE 4 MG/ML 1 ML VIAL IVP STA (07:44)
[2024-07-03] MEDS: diphenhydrAMINE 50 MG/ML 1 ML VIAL IVP STA (07:45)
[2024-07-03] MEDS: SODIUM CHLORIDE 0.9% 1,000 ML IV ONE (07:45)
[2024-07-03 08:04] VITALS: RESP 17
[2024-07-03 08:19] LABS: ALT 17 U/L (4-34); AST 29 U/L (14-36); African American GFR (CKD) >90 (>60 ml/min/1.73 sqM); Albumin 4.4 g/dL (3.5-5.0); Alkaline Phosphatase 52 U/L (38-126); Anion Gap 9 mmol/L; Blood Urea Nitrogen 11 mg/dL (7-17); Calcium 9.6 mg/dL (8.4-10.2); Carbon Dioxide 27 mmol/L (22-30); Chloride 103 mmol/L (98-107); Glucose 86 mg/dL (74-99); Non-African American GFR(CKD) >90 (>60 ml/min/1.73 sqM); Potassium 3.4 mmol/L (3.5-5.1); Sodium 139 mmol/L (137-145); Total Bilirubin 0.7 mg/dL (0.2-1.3); Total Protein 7.4 g/dL (6.3-8.2)
[2024-07-03 08:26] LABS: Basophils # (A) 0.02 10*3/uL (0.00-0.10); Basophils % (A) 0.3 %; Eosinophils # (A) 0.07 10*3/uL (0.04-0.35); Eosinophils % (A) 1.2 %; HCT 37.8 % (37.2-46.3); HGB 12.9 g/dL (12.0-15.0); Lymphocytes # (A) 1.78 10*3/uL (0.90-5.00); Lymphocytes % (A) 30.7 %; MCHC 34.1 g/dL (32.0-37.0); MCV 84.9 fL (80.0-97.0); Mean Platelet Volume 9.3 fL (9.5-12.2); Monocytes # (A) 0.59 10*3/uL (0.20-1.00); Monocytes % (A) 10.2 %; Neutrophils # (A) 3.32 10*3/uL (1.80-7.70); Neutrophils % (A) 57.4 %; Platelet Count 237 10*3/uL (140-440); RBC 4.45 10*6/uL (4.10-5.20); RDW 12.1 % (11.5-14.5); WBC 5.79 10*3/uL (4.50-10.00)
[2024-07-03] MEDS: POTASSIUM CHLORIDE ER 20 MEQ TAB.ER PO STA (09:32)
[2024-07-03 09:42] VITALS: BP 117/61; PULSE 82; TEMP 98
== END 2024-07-03 09:42 | disposition home or self-care (01) ==
LOC: EC 06:49
DX: L50.0 Allergic urticaria (principal); Z88.5 Allergy status to narcotic agent
CPT/HCPCS: 99283 ×2; 96374 ×2; 96375 ×3; 96361 ×3; 36415; 80053; 85025; J1200; J1100; J1308